=== PATIENT | female | born 1965 | race Caucasian/White ===

== ENCOUNTER 2016-12-27 12:53 | Inpatient (IN) | payer MEDICAID ==
[~2016-12-27] VITALS: Ht 160 cm; Wt 60.4 kg
[2016-12-27] MEDS ORDERED: ATOR40TA28 PO (13:58)
[2016-12-27] MEDS ORDERED: SODIUM CHLORIDE 0.9% 1,000 ML IV ONE (14:30)
[2016-12-27] MEDS ORDERED: ONDANSETRON HCL 4 MG/2 ML VIAL IVP ONE ×2 (14:30→17:15)
[2016-12-27 14:37] LABS: HEMATOCRIT 28.2 % (36-46); HEMOGLOBIN 9.3 g/dL (12.0-16.0); MEAN CORPUSCULAR HEMOGLOBIN 29.3 pg (26.0-34.0); MEAN CORPUSCULAR HGB CONC 33.1 G/dL (31.0-37.0); MEAN CORPUSCULAR VOLUME 89 fL (80-100); PLATELET COUNT (AUTO) 78 K/uL (150-450); RED BLOOD CELL COUNT(AUTO) 3.18 MIL/uL (4.00-5.20); RED CELL DISTRIBUTION WIDTH 13.8 % (11.5-14.5)
[2016-12-27] MEDS ORDERED: BARIUM SULFATE 0.1% SUSPENSION 450 ML BOTTLE PO ONE (15:15)
[2016-12-27 15:18] LABS: CALCIUM, TOTAL 7.5 mg/dL (8.8-10.5); CREATININE 5.05 mg/dL (0.60-1.30); POTASSIUM 5.4 mmol/L (3.5-5.1)
[2016-12-27 15:21] LABS: BAND NEUTROPHILS % (MANUAL) 20 % (1-5); LYMPHOCYTES % (MANUAL) 3 % (22-44); TOTAL CELLS COUNTED 100
[2016-12-27 15:23] LABS: RBC MORPHOLOGY COMMENT NORMAL RBC MORPH
[2016-12-27 15:24] LABS: ALBUMIN 2.1 g/dL (3.4-5.0); BILIRUBIN,TOTAL 0.8 mg/dL (0.1-1.0); TOTAL PROTEIN, SERUM 6.3 g/dL (6.4-8.2)
[2016-12-27] MEDS ORDERED: SODIUM CHLORIDE 0.9% 100 ML ONE (15:47)
[2016-12-27] MEDS ORDERED: IOVERSOL 350 MG/ML 100 ML VIAL ONE (15:47)
[2016-12-27 16:20] LABS: INFLUENZA TYPE B NEGATIVE FOR TYPE B (NEGATIVE)
[2016-12-27] MEDS ORDERED: MORPHINE SULFATE 2 MG/ML SYRINGE IVP ONE (16:30)
[2016-12-27] MEDS ORDERED: BISMUTH SUBSALICYLATE 524 MG/30 ML SUSPENSION UDCUP PO ONE (16:30)
[2016-12-27 19:52] LABS: ADD UA MICROSCOPIC YES; APPEARANCE,URINE CLOUDY (CLEAR); GLUCOSE, URINE (UA) NEGATIVE (NEGATIVE); KETONES,URINE NEGATIVE (NEGATIVE); LEUKOCYTE ESTERASE ,URINE NEGATIVE (NEGATIVE); OCCULT BLOOD,URINE NEGATIVE (NEGATIVE); PROTEIN,URINE SEE CONFIRM (NEGATIVE)
[2016-12-27 19:55] LABS: GLUCOSE,POINT OF CARE 217 MG/DL (70-110)
[2016-12-27] MEDS ORDERED: MORPHINE SULFATE 4 MG/ML SYRINGE IVP ONE (20:00)
[2016-12-27] MEDS ORDERED: CefTRIAXone 1 GM/DEXTROSE 50 ML IV ONE (20:00)
[2016-12-27 20:02] LABS: SULFOSALICYLIC ACID,URINE 2+ (Negative)
[2016-12-27 20:03] LABS: SQUAMOUS EPITHELIAL CELL,UR Few /LPF (None Seen)
[2016-12-27 20:05] LABS: RBC,URINE 0-2 /HPF (0-2)
[2016-12-27] MEDS ORDERED: ONDANSETRON HCL 4 MG/2 ML VIAL IVP PRN (20:30)
[2016-12-27] MEDS ORDERED: ZOLPIDEM TARTRATE 10 MG TABLET PO PRN (20:30)
[2016-12-27] MEDS ORDERED: ASPIRIN 81 MG CHEWABLE TABLET PO ONE (20:45)
[2016-12-27] MEDS ORDERED: SODIUM CHLORIDE 0.9% 500 ML IV ONE (21:00)
[2016-12-27 21:47] VITALS: BP 105/54
[2016-12-27] MEDS ORDERED: PNEUMOCOCCAL VACCINE POLYVALENT 0.5 ML VIAL [PPSV23] IM ONE (23:00)
[2016-12-27] MEDS ORDERED: INFLUENZA VIRUS VACCINE QVS 2016-17 (3YR+)/PF 60 MCG/0.5 ML SYRINGE IM ONE (23:00)
[2016-12-27] MEDS: HEPARIN SODIUM,PORCINE 5,000 UNITS/ML VIAL SQ SCH (23:29)
[2016-12-28] VITALS (7 sets, daily range): BP systolic 90–106; BP diastolic 57–71
[2016-12-28] MEDS: HEPARIN SODIUM,PORCINE 5,000 UNITS/ML VIAL SQ SCH ×2 (08:00→20:37)
[2016-12-28 08:19] LABS: ALBUMIN 1.6 g/dL (3.4-5.0); BILIRUBIN,TOTAL 0.7 mg/dL (0.1-1.0); CALCIUM, TOTAL 6.9 mg/dL (8.8-10.5); CREATININE 5.11 mg/dL (0.60-1.30); POTASSIUM 4.6 mmol/L (3.5-5.1); TOTAL PROTEIN, SERUM 5.6 g/dL (6.4-8.2)
[2016-12-28 08:20] LABS: HEMATOCRIT 24.8 % (36-46); HEMOGLOBIN 8.4 g/dL (12.0-16.0); MEAN CORPUSCULAR HEMOGLOBIN 29.4 pg (26.0-34.0); MEAN CORPUSCULAR VOLUME 86 fL (80-100); RED BLOOD CELL COUNT(AUTO) 2.87 MIL/uL (4.00-5.20); RED CELL DISTRIBUTION WIDTH 14.2 % (11.5-14.5)
[2016-12-28] MEDS: ACETAMINOPHEN 325 MG TABLET PO PRN (09:27)
[2016-12-28] MEDS: PANTOPRAZOLE SODIUM 40 MG DR TABLET PO SCH (09:30)
[2016-12-28 09:52] LABS: PLATELET COUNT (AUTO) 61 K/uL (150-450)
[2016-12-28 09:57] LABS: BAND NEUTROPHILS % (MANUAL) 20 % (1-5); EOSINOPHILS % (MANUAL) 5 % (1-6); LYMPHOCYTES % (MANUAL) 4 % (22-44); TOTAL CELLS COUNTED 100
[2016-12-28] MEDS: SODIUM CHLORIDE 0.9% 1,000 ML IV SCH (10:12)
[2016-12-28] MEDS ORDERED: DEXTROSE 50%-WATER 25 GM/50 ML SYRINGE IVP PRN ×2 (12:15→12:30)
[2016-12-28] MEDS ORDERED: INSULIN ASPART 100 UNITS/ML SQ PRN (12:15)
[2016-12-28] MEDS: INSULIN ASPART 100 UNITS/ML SQ PRN ×3 (13:28→20:45)
[2016-12-28] MEDS: VITAMIN B COMP/VIT C/FOLIC ACID CAPSULE PO SCH (15:41)
[2016-12-28 18:17] LABS: GLUCOSE COMMENT 1 Received Meds; GLUCOSE,POINT OF CARE 328 MG/DL (70-110)
[2016-12-28 18:17] LABS: GLUCOSE,POINT OF CARE 180 MG/DL (70-110)
[2016-12-28 18:48] LABS: APPEARANCE,URINE TURBID (CLEAR); GLUCOSE, URINE (UA) NEGATIVE (NEGATIVE); KETONES,URINE NEGATIVE (NEGATIVE); LEUKOCYTE ESTERASE ,URINE SMALL (NEGATIVE); OCCULT BLOOD,URINE SMALL (NEGATIVE); PROTEIN,URINE SEE CONFIRM (NEGATIVE)
[2016-12-28 19:07] LABS: SQUAMOUS EPITHELIAL CELL,UR Few /LPF (None Seen)
[2016-12-28 19:09] LABS: SULFOSALICYLIC ACID,URINE 2+ (Negative)
[2016-12-28] MEDS: CefTRIAXone 1 GM/DEXTROSE 50 ML IV SCH (19:15)
[2016-12-29] VITALS (7 sets, daily range): BP systolic 108–154; BP diastolic 70–114
[2016-12-29] MEDS: SODIUM CHLORIDE 0.9% 1,000 ML IV SCH ×2 (00:28→08:39)
[2016-12-29] MEDS: MetroNIDAZOLE 500 MG/NACL 100 ML IV SCH ×3 (01:48→16:04)
[2016-12-29] MEDS ORDERED: MEBROFENIN TC99M/MCL ISOTOPE 1 EA INJ INJ ONE (04:30)
[2016-12-29] MEDS: INSULIN ASPART 100 UNITS/ML SQ PRN ×3 (06:44→21:00)
[2016-12-29 08:13] LABS: INR 0.9 (0.9-1.1); PARTIAL THROMBOPLASTIN TIME 30 SEC (25-35)
[2016-12-29 08:30] LABS: HEMATOCRIT 23.7 % (36-46); HEMOGLOBIN 8.1 g/dL (12.0-16.0); MEAN CORPUSCULAR HEMOGLOBIN 29.2 pg (26.0-34.0); MEAN CORPUSCULAR HGB CONC 34.1 G/dL (31.0-37.0); MEAN CORPUSCULAR VOLUME 86 fL (80-100); PLATELET COUNT (AUTO) 37 K/uL (150-450); RED BLOOD CELL COUNT(AUTO) 2.77 MIL/uL (4.00-5.20); RED CELL DISTRIBUTION WIDTH 14.4 % (11.5-14.5); WHITE BLOOD COUNT (AUTO) 20.7 K/uL (4.5-11.0)
[2016-12-29] MEDS: VITAMIN B COMP/VIT C/FOLIC ACID CAPSULE PO SCH (08:38)
[2016-12-29] MEDS: HEPARIN SODIUM,PORCINE 5,000 UNITS/ML VIAL SQ SCH (08:38)
[2016-12-29] MEDS: PANTOPRAZOLE SODIUM 40 MG DR TABLET PO SCH (08:39)
[2016-12-29 08:44] LABS: ALBUMIN 1.4 g/dL (3.4-5.0); BILIRUBIN,TOTAL 0.6 mg/dL (0.1-1.0); CALCIUM, TOTAL 7.5 mg/dL (8.8-10.5); CREATININE 5.07 mg/dL (0.60-1.30); POTASSIUM 4.3 mmol/L (3.5-5.1); TOTAL PROTEIN, SERUM 5.3 g/dL (6.4-8.2)
[2016-12-29 09:00] LABS: MAGNESIUM 2.3 mg/dL (1.80-2.40); PHOSPHORUS 5.1 mg/dL (2.5-4.9)
[2016-12-29] MEDS ORDERED: SODIUM CHLORIDE 1 GM TABLET PO SCH (10:00)
[2016-12-29 10:15] LABS: BAND NEUTROPHILS % (MANUAL) 18 % (1-5); EOSINOPHILS % (MANUAL) 3 % (1-6); LYMPHOCYTES % (MANUAL) 2 % (22-44); RBC MORPHOLOGY COMMENT NORMAL RBC MORPH; TOTAL CELLS COUNTED 100
[2016-12-29] MEDS: ONDANSETRON HCL 4 MG/2 ML VIAL IVP PRN ×2 (10:26→20:45)
[2016-12-29] MEDS ORDERED: INSULIN ASPART 100 UNITS/ML SQ ONE (15:45)
[2016-12-29] MEDS: SODIUM CHLORIDE 3% 500 ML IV SCH (16:48)
[2016-12-29] MEDS ORDERED: *CLINICAL-LEVOFLOXACIN IVPB DOSING CLINICAL ONE ×2 (18:15)
[2016-12-29] MEDS ORDERED: LEVOFLOXACIN 750 MG/D5% WATER 150 ML IV ONE (19:00)
[2016-12-29] MEDS: CefTRIAXone 1 GM/DEXTROSE 50 ML IV SCH (20:31)
[2016-12-30] MEDS: MetroNIDAZOLE 500 MG/NACL 100 ML IV SCH ×3 (00:37→16:44)
[2016-12-30] MEDS: ONDANSETRON HCL 4 MG/2 ML VIAL IVP PRN ×4 (03:34→19:52)
[2016-12-30 04:06] VITALS: BP 141/79
[2016-12-30] MEDS: INSULIN ASPART 100 UNITS/ML SQ PRN ×4 (06:38→22:10)
[2016-12-30] MEDS: SODIUM CHLORIDE 3% 500 ML IV SCH (06:39)
[2016-12-30 06:42] LABS: GLUCOSE COMMENT 1 Received Meds; GLUCOSE,POINT OF CARE 253 MG/DL (70-110)
[2016-12-30 06:42] LABS: GLUCOSE COMMENT 1 Received Meds; GLUCOSE,POINT OF CARE 385 MG/DL (70-110)
[2016-12-30 06:42] LABS: GLUCOSE COMMENT 1 Received Meds; GLUCOSE,POINT OF CARE 362 MG/DL (70-110)
[2016-12-30 06:42] LABS: GLUCOSE,POINT OF CARE 343 MG/DL (70-110)
[2016-12-30 06:42] LABS: GLUCOSE,POINT OF CARE 200 MG/DL (70-110)
[2016-12-30 06:43] LABS: GLUCOSE,POINT OF CARE 322 MG/DL (70-110)
[2016-12-30 06:43] LABS: GLUCOSE COMMENT 1 Received Meds; GLUCOSE,POINT OF CARE 314 MG/DL (70-110)
[2016-12-30 06:47] LABS: BASOPHILS % (AUTO) 0.1 % (0.0-2.0); EOSINOPHILS % (AUTO) 3.3 % (1.0-6.0); HEMATOCRIT 26.2 % (36-46); HEMOGLOBIN 8.6 g/dL (12.0-16.0); LYMPHOCYTES # (AUTO) 1.1 K/uL (1.0-4.8); MEAN CORPUSCULAR HEMOGLOBIN 28.8 pg (26.0-34.0); MEAN CORPUSCULAR HGB CONC 32.6 G/dL (31.0-37.0); MEAN CORPUSCULAR VOLUME 88 fL (80-100); MONOCYTES # (AUTO) 0.3 K/uL (0.1-1.0); MONOCYTES % (AUTO) 1.6 % (2.0-9.0); NEUTROPHILS # (AUTO) 18.9 K/uL (1.8-7.7); PLATELET COUNT (AUTO) 23 K/uL (150-450); RED BLOOD CELL COUNT(AUTO) 2.97 MIL/uL (4.00-5.20); RED CELL DISTRIBUTION WIDTH 13.5 % (11.5-14.5); WHITE BLOOD COUNT (AUTO) 21.1 K/uL (4.5-11.0)
[2016-12-30 07:26] LABS: ALBUMIN 1.4 g/dL (3.4-5.0); BILIRUBIN,TOTAL 0.4 mg/dL (0.1-1.0); CREATININE 4.59 mg/dL (0.60-1.30); TOTAL PROTEIN, SERUM 5.5 g/dL (6.4-8.2)
[2016-12-30 08:01] VITALS: BP 131/78
[2016-12-30] MEDS: VITAMIN B COMP/VIT C/FOLIC ACID CAPSULE PO SCH (08:30)
[2016-12-30] MEDS: PANTOPRAZOLE SODIUM 40 MG DR TABLET PO SCH (08:30)
[2016-12-30 08:37] LABS: GLUCOSE COMMENT 1 Doctor Notified; GLUCOSE,POINT OF CARE 292 MG/DL (70-110)
[2016-12-30 09:08] LABS: RBC MORPHOLOGY COMMENT NORMAL RBC MORPH
[2016-12-30 10:48] VITALS: BP 134/77
[2016-12-30 11:28] LABS: CALCIUM, TOTAL 7.9 mg/dL (8.8-10.5); CREATININE 4.45 mg/dL (0.60-1.30); POTASSIUM 4.1 mmol/L (3.5-5.1)
[2016-12-30] MEDS: ACETAMINOPHEN 325 MG TABLET PO PRN (13:20)
[2016-12-30] MEDS: SODIUM CHLORIDE 0.9% 1,000 ML IV SCH (13:22)
[2016-12-30 16:32] VITALS: BP 162/98
[2016-12-30] MEDS: OxyCODONE HCL/ACETAMINOPHEN 5-325 MG TABLET PO PRN (16:44)
[2016-12-30 17:52] LABS: GLUCOSE COMMENT 1 Received Meds; GLUCOSE,POINT OF CARE 350 MG/DL (70-110)
[2016-12-30 17:53] LABS: GLUCOSE COMMENT 1 Received Meds; GLUCOSE,POINT OF CARE 261 MG/DL (70-110)
[2016-12-30 17:53] LABS: GLUCOSE COMMENT 1 Received Meds; GLUCOSE,POINT OF CARE 270 MG/DL (70-110)
[2016-12-30 18:01] LABS: GLUCOSE COMMENT 1 Received Meds; GLUCOSE,POINT OF CARE 321 MG/DL (70-110)
[2016-12-30 19:47] VITALS: BP 139/81
[2016-12-30] MEDS: CefTRIAXone 1 GM/DEXTROSE 50 ML IV SCH (19:52)
[2016-12-30] MEDS: INSULIN DETEMIR 100 UNITS/ML SQ SCH (21:00)
[2016-12-30 23:19] VITALS: BP 147/87
[2016-12-31 00:41] LABS: GLUCOSE, URINE (UA) 250 mg/dL (NEGATIVE); KETONES,URINE NEGATIVE (NEGATIVE); LEUKOCYTE ESTERASE ,URINE NEGATIVE (NEGATIVE); OCCULT BLOOD,URINE TRACE (NEGATIVE); PROTEIN,URINE SEE CONFIRM (NEGATIVE)
[2016-12-31 00:47] LABS: APPEARANCE,URINE HAZY (CLEAR)
[2016-12-31] MEDS: MetroNIDAZOLE 500 MG/NACL 100 ML IV SCH ×2 (00:47→08:22)
[2016-12-31] MEDS: SODIUM CHLORIDE 0.9% 1,000 ML IV SCH ×2 (00:47→22:21)
[2016-12-31 01:01] LABS: RBC,URINE 0-2 /HPF (0-2); SULFOSALICYLIC ACID,URINE 1+ (Negative); WBC,URINE 0-2 /HPF (0-5)
[2016-12-31] MEDS: ONDANSETRON HCL 4 MG/2 ML VIAL IVP PRN ×3 (02:04→17:45)
[2016-12-31 04:48] VITALS: BP 150/84
[2016-12-31] MEDS: INSULIN ASPART 100 UNITS/ML SQ PRN ×4 (05:47→20:32)
[2016-12-31 06:41] LABS: HEMATOCRIT 26.3 % (36-46); HEMOGLOBIN 8.7 g/dL (12.0-16.0); MEAN CORPUSCULAR HEMOGLOBIN 28.9 pg (26.0-34.0); MEAN CORPUSCULAR VOLUME 88 fL (80-100); PLATELET COUNT (AUTO) 41 K/uL (150-450); RED CELL DISTRIBUTION WIDTH 14.7 % (11.5-14.5); WHITE BLOOD COUNT (AUTO) 19.2 K/uL (4.5-11.0)
[2016-12-31 07:00] LABS: ALBUMIN 1.5 g/dL (3.4-5.0); BILIRUBIN,TOTAL 0.3 mg/dL (0.1-1.0); CALCIUM, TOTAL 8.4 mg/dL (8.8-10.5); CREATININE 3.84 mg/dL (0.60-1.30); TOTAL PROTEIN, SERUM 5.3 g/dL (6.4-8.2)
[2016-12-31 07:46] VITALS: BP 159/85
[2016-12-31] MEDS: PANTOPRAZOLE SODIUM 40 MG DR TABLET PO SCH (08:22)
[2016-12-31] MEDS: VITAMIN B COMP/VIT C/FOLIC ACID CAPSULE PO SCH (08:22)
[2016-12-31] MEDS: INSULIN DETEMIR 100 UNITS/ML SQ SCH ×2 (08:23→20:32)
[2016-12-31 08:47] LABS: BAND NEUTROPHILS % (MANUAL) 25 % (1-5); LYMPHOCYTES % (MANUAL) 8 % (22-44); RBC MORPHOLOGY COMMENT NORMAL RBC MORPH; TOTAL CELLS COUNTED 100
[2016-12-31 11:14] VITALS: BP 154/88
[2016-12-31] MEDS: ACETAMINOPHEN 325 MG TABLET PO PRN ×2 (11:48→23:12)
[2016-12-31 15:01] VITALS: BP 158/90
[2016-12-31 17:32] LABS: GLUCOSE COMMENT 1 Received Meds; GLUCOSE,POINT OF CARE 247 MG/DL (70-110)
[2016-12-31 17:32] LABS: GLUCOSE COMMENT 1 Received Meds; GLUCOSE,POINT OF CARE 258 MG/DL (70-110)
[2016-12-31 17:37] LABS: GLUCOSE COMMENT 1 Received Meds; GLUCOSE,POINT OF CARE 245 MG/DL (70-110)
[2016-12-31 19:22] VITALS: BP 155/82
[2016-12-31] MEDS: CefTRIAXone 1 GM/DEXTROSE 50 ML IV SCH (20:25)
[2016-12-31] MEDS ORDERED: LEVOFLOXACIN 500 MG/D5% WATER 100 ML IV SCH (21:00)
[2017-01-01] VITALS (8 sets, daily range): BP systolic 143–165; BP diastolic 73–90
[2017-01-01] MEDS: ONDANSETRON HCL 4 MG/2 ML VIAL IVP PRN ×2 (03:28→09:58)
[2017-01-01] MEDS: INSULIN ASPART 100 UNITS/ML SQ PRN ×4 (05:57→20:50)
[2017-01-01 07:02] LABS: EOSINOPHILS # (AUTO) 0.25 K/uL (0.00-0.70); EOSINOPHILS % (AUTO) 1.53 % (1.0-6.0); HEMATOCRIT 25.5 % (36-46); HEMOGLOBIN 8.5 g/dL (12.0-16.0); LYMPHOCYTES # (AUTO) 1.2 K/uL (1.0-4.8); LYMPHOCYTES % (AUTO) 7.3 % (22.0-44.0); MEAN CORPUSCULAR HGB CONC 33.5 G/dL (31.0-37.0); MEAN CORPUSCULAR VOLUME 86 fL (80-100); MONOCYTES # (AUTO) 0.2 K/uL (0.1-1.0); MONOCYTES % (AUTO) 1.4 % (2.0-9.0); NEUTROPHILS # (AUTO) 14.9 K/uL (1.8-7.7); PLATELET COUNT (AUTO) 70 K/uL (150-450); RED BLOOD CELL COUNT(AUTO) 2.95 MIL/uL (4.00-5.20); RED CELL DISTRIBUTION WIDTH 14.7 % (11.5-14.5); WHITE BLOOD COUNT (AUTO) 16.5 K/uL (4.5-11.0)
[2017-01-01 07:16] LABS: NEUTROPHILS % (AUTO) 89.8 % (40.0-70.0)
[2017-01-01 07:50] LABS: ALBUMIN 1.4 g/dL (3.4-5.0); BILIRUBIN,TOTAL 0.4 mg/dL (0.1-1.0); CREATININE 2.81 mg/dL (0.60-1.30); POTASSIUM 3.9 mmol/L (3.5-5.1); TOTAL PROTEIN, SERUM 5.1 g/dL (6.4-8.2)
[2017-01-01 08:05] LABS: CALCIUM, TOTAL 7.8 mg/dL (8.8-10.5)
[2017-01-01 08:31] LABS: GLUCOSE COMMENT 1 Received Meds; GLUCOSE,POINT OF CARE 210 MG/DL (70-110)
[2017-01-01 08:31] LABS: GLUCOSE COMMENT 1 Received Meds; GLUCOSE,POINT OF CARE 270 MG/DL (70-110)
[2017-01-01] MEDS ORDERED: EPOETIN ALFA 10,000 UNITS/ML VIAL SQ SCH (09:00)
[2017-01-01] MEDS: PANTOPRAZOLE SODIUM 40 MG DR TABLET PO SCH (09:14)
[2017-01-01] MEDS: VITAMIN B COMP/VIT C/FOLIC ACID CAPSULE PO SCH (09:14)
[2017-01-01] MEDS: INSULIN DETEMIR 100 UNITS/ML SQ SCH ×2 (09:16→20:51)
[2017-01-01] MEDS ORDERED: AmLODIPine BESYLATE 5 MG TABLET PO SCH (10:30)
[2017-01-01 10:51] LABS: BAND NEUTROPHILS % (MANUAL) 13 % (1-5); LYMPHOCYTES % (MANUAL) 18 % (22-44); TOTAL CELLS COUNTED 100
[2017-01-01 10:52] LABS: RBC MORPHOLOGY COMMENT NORMAL RBC MORPH
[2017-01-01] MEDS: SODIUM CHLORIDE 0.9% 1,000 ML IV SCH (15:26)
[2017-01-01] MEDS: FERROUS SULFATE 325 MG EC TABLET PO SCH (17:50)
[2017-01-01 19:20] LABS: GLUCOSE COMMENT 1 Received Meds; GLUCOSE,POINT OF CARE 262 MG/DL (70-110)
[2017-01-01] MEDS: CefTRIAXone 1 GM/DEXTROSE 50 ML IV SCH (20:51)
[2017-01-01] MEDS: OxyCODONE HCL/ACETAMINOPHEN 5-325 MG TABLET PO PRN (20:55)
[2017-01-01] MEDS: OXYGEN THERAPY IH SCH (20:56)
[2017-01-02 04:31] LABS: GLUCOSE COMMENT 1 Received Meds; GLUCOSE,POINT OF CARE 280 MG/DL (70-110)
[2017-01-02] MEDS: SODIUM CHLORIDE 0.9% 1,000 ML IV SCH (04:37)
[2017-01-02] MEDS: ONDANSETRON HCL 4 MG/2 ML VIAL IVP PRN (04:42)
[2017-01-02 05:10] VITALS: BP 151/75
[2017-01-02 06:28] LABS: CALCIUM, TOTAL 7.8 mg/dL (8.8-10.5); CREATININE 1.86 mg/dL (0.60-1.30); MAGNESIUM 1.7 mg/dL (1.80-2.40); PHOSPHORUS 3.2 mg/dL (2.5-4.9); POTASSIUM 3.5 mmol/L (3.5-5.1)
[2017-01-02] MEDS: INSULIN ASPART 100 UNITS/ML SQ PRN ×4 (06:42→20:20)
[2017-01-02 06:51] LABS: GLUCOSE COMMENT 1 Received Meds; GLUCOSE,POINT OF CARE 172 MG/DL (70-110)
[2017-01-02 07:46] VITALS: BP 155/86
[2017-01-02] MEDS: OXYGEN THERAPY IH SCH (08:00)
[2017-01-02 08:26] LABS: BASOPHILS % (AUTO) 0.1 % (0.0-2.0); HEMATOCRIT 27.3 % (36-46); LYMPHOCYTES # (AUTO) 1.8 K/uL (1.0-4.8); LYMPHOCYTES % (AUTO) 11.1 % (22.0-44.0); MEAN CORPUSCULAR VOLUME 88 fL (80-100); MONOCYTES # (AUTO) 0.5 K/uL (0.1-1.0); MONOCYTES % (AUTO) 3.1 % (2.0-9.0); NEUTROPHILS # (AUTO) 13.6 K/uL (1.8-7.7); NEUTROPHILS % (AUTO) 82.7 % (40.0-70.0); PLATELET COUNT (AUTO) 142 K/uL (150-450); RED CELL DISTRIBUTION WIDTH 14.5 % (11.5-14.5); WHITE BLOOD COUNT (AUTO) 16.5 K/uL (4.5-11.0)
[2017-01-02] MEDS: PANTOPRAZOLE SODIUM 40 MG DR TABLET PO SCH (08:56)
[2017-01-02] MEDS: VITAMIN B COMP/VIT C/FOLIC ACID CAPSULE PO SCH (08:56)
[2017-01-02] MEDS: FERROUS SULFATE 325 MG EC TABLET PO SCH ×2 (08:57→18:28)
[2017-01-02] MEDS: INSULIN DETEMIR 100 UNITS/ML SQ SCH ×2 (08:58→20:21)
[2017-01-02] MEDS ORDERED: AmLODIPine BESYLATE 10 MG TABLET PO SCH (09:00)
[2017-01-02] MEDS ORDERED: MAGNESIUM SULFATE 1 GM in DEXTROSE 5%-WATER 50 ML IV ONE (10:00)
[2017-01-02 11:13] VITALS: BP 143/82
[2017-01-02 12:11] LABS: GLUCOSE COMMENT 1 Received Meds; GLUCOSE,POINT OF CARE 226 MG/DL (70-110)
[2017-01-02 15:20] VITALS: BP 147/77
[2017-01-02 17:56] LABS: GLUCOSE COMMENT 1 Received Meds; GLUCOSE,POINT OF CARE 245 MG/DL (70-110)
[2017-01-02] MEDS ORDERED: PANT40TA25 PO (18:40)
[2017-01-02] MEDS ORDERED: AMLO-512 PO (18:40)
[2017-01-02] MEDS ORDERED: FERR-72 PO (18:40)
[2017-01-02] MEDS ORDERED: FOLI1CAP2 PO (18:40)
[2017-01-02] MEDS ORDERED: INSU100V12 SQ (18:40)
[2017-01-02] MEDS ORDERED: CEFX1I IV (18:40)
[2017-01-02] MEDS ORDERED: PERCT PO (18:41)
[2017-01-02] MEDS: CefTRIAXone 1 GM/DEXTROSE 50 ML IV SCH (18:59)
[2017-01-02] MEDS ORDERED: ACET-784 PO (19:18)
[2017-01-02] MEDS ORDERED: INSNOV SQ (19:19)
[2017-01-02 20:26] VITALS: BP 149/92
[2017-01-03 06:56] LABS: GLUCOSE COMMENT 1 Received Meds; GLUCOSE,POINT OF CARE 287 MG/DL (70-110)
[2017-01-03 10:01] LABS: GLUCOSE COMMENT 1 Received Meds; GLUCOSE,POINT OF CARE 343 MG/DL (70-110)
[2017-01-04 20:42] LABS: GLUCOSE,POINT OF CARE 259 MG/DL (70-110)
[2017-01-04 20:42] LABS: GLUCOSE COMMENT 1 Received Meds; GLUCOSE,POINT OF CARE 323 MG/DL (70-110)
== END 2017-01-02 20:15 | disposition home or self-care (01) | DRG 720 ==
LOC: EMS 12:57 → 5N 20:32 → 6N 01-01 16:00
PROVIDERS: ADMIT Hospitalist; ATTEND Hospitalist
PROC: 3E0234Z Introduction of Serum, Toxoid and Vaccine into Muscle, Percutaneous Approach (ICD-10-PCS; principal; 2016-12-27)
DX: A41.9 Sepsis, unspecified organism (principal); N17.0 Acute kidney failure with tubular necrosis; E43 Unspecified severe protein-calorie malnutrition; D69.6 Thrombocytopenia, unspecified; E11.22 Type 2 diabetes mellitus with diabetic chronic kidney disease; E11.65 Type 2 diabetes mellitus with hyperglycemia; K76.0 Fatty (change of) liver, not elsewhere classified; E87.1 Hypo-osmolality and hyponatremia; N12 Tubulo-interstitial nephritis, not specified as acute or chronic; R19.7 Diarrhea, unspecified; I12.9 Hypertensive chronic kidney disease with stage 1 through stage 4 chronic kidney disease, or unspecified chronic kidney disease; E83.42 Hypomagnesemia; R04.0 Epistaxis; D64.9 Anemia, unspecified; K52.9 Noninfective gastroenteritis and colitis, unspecified; E78.5 Hyperlipidemia, unspecified; E78.00 Pure hypercholesterolemia, unspecified; N13.30 Unspecified hydronephrosis; E87.5 Hyperkalemia; B96.20 Unspecified Escherichia coli [E. coli] as the cause of diseases classified elsewhere; N18.9 Chronic kidney disease, unspecified; Z79.899 Other long term (current) drug therapy; Z90.49 Acquired absence of other specified parts of digestive tract; Z79.01 Long term (current) use of anticoagulants; Z68.23 Body mass index [BMI] 23.0-23.9, adult; Z23 Encounter for immunization
CPT/HCPCS: 51702; 74177; 76700; 76770; 78226; 82570; 82962; 83615; 83735; 83930; 83935; 84100; 84295; 84300; 84540; 85007; 85362; 87040; 87086; 87804; 90471; 93005; 93306; 97110; 97116; 97162; 97530; 99281; A9537; J0696; J0885; J1644; J1815; J1956; J2270; J2405; J3475; J3490; J7030; J7040; J7050; J7060

== ENCOUNTER 2017-07-02 20:12 | Emergency (ER) | payer MEDICAID ==
[~2017-07-02] VITALS: Ht 152.4 cm; Wt 61.4 kg
[~2017-07-02 20:12] MED LIST: ASPI-556 PO; ATOR40TA28 PO; CIP250 PO; FERR-72 PO; FOLI1CAP2 PO; GABA-529 PO; INSU100V12 SQ; METO25 PO; METR500 PO; NIFE10CA PO; PANT40TA25 PO; VALS160T2 PO
[2017-07-02 20:16] VITALS: BP 126/63
[2017-07-02 20:26] LABS: BASOPHILS % (AUTO) 0.7 % (0.0-2.0); EOSINOPHILS % (AUTO) 4.5 % (1.0-6.0); HEMATOCRIT 31.1 % (36-46); HEMOGLOBIN 10.8 g/dL (12.0-16.0); MEAN CORPUSCULAR HEMOGLOBIN 29.4 pg (26.0-34.0); MEAN CORPUSCULAR HGB CONC 34.7 G/dL (31.0-37.0); MEAN CORPUSCULAR VOLUME 85 fL (80-100); MONOCYTES # (AUTO) 0.5 K/uL (0.1-1.0); MONOCYTES % (AUTO) 6.3 % (2.0-9.0); NEUTROPHILS # (AUTO) 4.4 K/uL (1.8-7.7); NEUTROPHILS % (AUTO) 60.5 % (40.0-70.0); PLATELET COUNT (AUTO) 326 K/uL (150-450); RED BLOOD CELL COUNT(AUTO) 3.67 MIL/uL (4.00-5.20); RED CELL DISTRIBUTION WIDTH 14.2 % (11.5-14.5); WHITE BLOOD COUNT (AUTO) 7.3 K/uL (4.5-11.0)
[2017-07-02 20:48] LABS: ALBUMIN 3.5 g/dL (3.4-5.0); BILIRUBIN,TOTAL 0.6 mg/dL (0.1-1.0); CALCIUM, TOTAL 9.6 mg/dL (8.8-10.5); CREATININE 2.71 mg/dL (0.60-1.30); POTASSIUM 5.2 mmol/L (3.5-5.1); TOTAL PROTEIN, SERUM 8.2 g/dL (6.4-8.2)
== END 2017-07-02 21:34 | disposition left against medical advice (07) ==
LOC: EMS 20:13
DX: R10.31 Right lower quadrant pain (principal); R11.2 Nausea with vomiting, unspecified; E11.9 Type 2 diabetes mellitus without complications; E78.00 Pure hypercholesterolemia, unspecified; I10 Essential (primary) hypertension; Z53.21 Procedure and treatment not carried out due to patient leaving prior to being seen by health care provider

== ENCOUNTER 2017-09-19 09:15 | Inpatient (IN) | payer MEDICAID ==
[~2017-09-19] VITALS: Ht 152.4 cm; Wt 79.3 kg
[2017-09-19] VITALS (16 sets, daily range): BP systolic 121–199; BP diastolic 67–103
[~2017-09-19 09:15] MED LIST changes: +ACET1TAB12 PO; +CEPH500T PO; -CIP250 PO; +CIPR-140 PO; +DOCU250C90 PO; -FERR-72 PO; +FERR-82 PO; +FERR325T22 PO; +GABA100C PO; +INSLAN SQ; +INSNOV SQ; -METR500 PO; +METR500T4 PO; +NIFE30TA5 PO
[2017-09-19] MEDS ORDERED: GABA-529 PO (09:24)
[2017-09-19] MEDS ORDERED: INSLAN SQ (09:24)
[2017-09-19] MEDS ORDERED: LISI-662 PO (09:24)
[2017-09-19] MEDS ORDERED: PROM25 PO ×2 (09:24→15:35)
[2017-09-19 09:28] LABS: GLUCOSE,POINT OF CARE 178 MG/DL (70-110)
[2017-09-19] MEDS ORDERED: MORPHINE SULFATE 4 MG/ML SYRINGE IVP ONE ×2 (09:45→12:30)
[2017-09-19] MEDS ORDERED: ONDANSETRON HCL 4 MG/2 ML VIAL IVP ONE (09:45)
[2017-09-19] MEDS ORDERED: PANTOPRAZOLE SODIUM 40 MG/VIAL IVP ONE ×2 (09:45→11:15)
[2017-09-19] MEDS ORDERED: SODIUM CHLORIDE 0.9% 1,000 ML IV ONE ×3 (09:45→14:15)
[2017-09-19 10:54] LABS: BASOPHILS # (AUTO) 0.03 K/uL (0.00-0.20)
[2017-09-19 10:58] LABS: APPEARANCE,URINE CLEAR (CLEAR); GLUCOSE, URINE (UA) 100 mg/dL (NEGATIVE); KETONES,URINE NEGATIVE (NEGATIVE); LEUKOCYTE ESTERASE ,URINE NEGATIVE (NEGATIVE); OCCULT BLOOD,URINE MODERATE (NEGATIVE); PROTEIN,URINE SEE CONFIRM (NEGATIVE)
[2017-09-19 10:59] LABS: BASOPHILS % (AUTO) 0.3 % (0.0-2.0); EOSINOPHILS # (AUTO) 0.22 K/uL (0.00-0.70); EOSINOPHILS % (AUTO) 2.43 % (1.0-6.0); LYMPHOCYTES # (AUTO) 0.9 K/uL (1.0-4.8); LYMPHOCYTES % (AUTO) 10.4 % (22.0-44.0); MEAN CORPUSCULAR HEMOGLOBIN 30.5 pg (26.0-34.0); MEAN CORPUSCULAR HGB CONC 35.1 G/dL (31.0-37.0); MEAN CORPUSCULAR VOLUME 87 fL (80-100); MONOCYTES # (AUTO) 0.6 K/uL (0.1-1.0); MONOCYTES % (AUTO) 6.7 % (2.0-9.0); NEUTROPHILS # (AUTO) 7.2 K/uL (1.8-7.7); NEUTROPHILS % (AUTO) 80.2 % (40.0-70.0); PLATELET COUNT (AUTO) 262 K/uL (150-450); RED BLOOD CELL COUNT(AUTO) 2.23 MIL/uL (4.00-5.20); RED CELL DISTRIBUTION WIDTH 13.7 % (11.5-14.5)
[2017-09-19 11:02] LABS: HEMOGLOBIN 6.8 g/dL (12.0-16.0)
[2017-09-19 11:03] LABS: ADD UA MICROSCOPIC YES
[2017-09-19 11:03] LABS: ALBUMIN 2.9 g/dL (3.4-5.0); BILIRUBIN,TOTAL 0.5 mg/dL (0.1-1.0); CALCIUM, TOTAL 8.1 mg/dL (8.8-10.5); CREATININE 3.68 mg/dL (0.60-1.30); HEMATOCRIT 19.4 % (36-46); POTASSIUM 4.1 mmol/L (3.5-5.1); TOTAL PROTEIN, SERUM 7.1 g/dL (6.4-8.2)
[2017-09-19 11:11] LABS: SULFOSALICYLIC ACID,URINE 3+ (Negative)
[2017-09-19 11:13] LABS: RBC,URINE 0-2 /HPF (0-2); SQUAMOUS EPITHELIAL CELL,UR Few /LPF (None Seen); WBC,URINE None Seen /HPF (0-5)
[2017-09-19] MEDS ORDERED: ACETAMINOPHEN 325 MG TABLET PO PRN ×2 (11:30→14:15)
[2017-09-19] MEDS ORDERED: ONDANSETRON HCL 4 MG/2 ML VIAL IVP PRN (11:30)
[2017-09-19 12:08] LABS: GLUCOSE,POINT OF CARE 168 MG/DL (70-110)
[2017-09-19] MEDS ORDERED: METOCLOPRAMIDE HCL 5 MG/ML 2 ML VIAL IVP ONE (12:30)
[2017-09-19] MEDS ORDERED: MAGNESIUM HYDROXIDE SUSPENSION 30 ML UDCUP PO PRN (14:15)
[2017-09-19] MEDS ORDERED: BISACODYL 10 MG RECTAL RECTAL SUPPOSITORY PR PRN (14:15)
[2017-09-19] MEDS ORDERED: HydrALAZINE HCL 20 MG/ML VIAL IVP PRN ×2 (14:15→18:00)
[2017-09-19] MEDS ORDERED: HYDROCODONE/ACETAMINOPHEN 5-325 MG TABLET PO PRN (14:15)
[2017-09-19] MEDS ORDERED: ZOLPIDEM TARTRATE 5 MG TABLET PO PRN (14:15)
[2017-09-19] MEDS ORDERED: DEXTROSE 50%-WATER 25 GM/50 ML SYRINGE IVP PRN (14:15)
[2017-09-19] MEDS: METOPROLOL TARTRATE 50 MG TABLET PO SCH ×2 (15:15→20:24)
[2017-09-19] MEDS ORDERED: ONDA4 PO ×2 (15:35)
[2017-09-19] MEDS: NIFEdipine 60 MG ER TABLET PO SCH (16:03)
[2017-09-19] MEDS: PANTOPRAZOLE SODIUM 80 MG in SODIUM CHLORIDE 0.9% 100 ML IV SCH (16:12)
[2017-09-19 17:26] LABS: CALCIUM, TOTAL 7.9 mg/dL (8.8-10.5); CREATININE 3.68 mg/dL (0.60-1.30); POTASSIUM 3.7 mmol/L (3.5-5.1)
[2017-09-19 17:27] LABS: ADD UA MICROSCOPIC YES; APPEARANCE,URINE CLEAR (CLEAR); GLUCOSE, URINE (UA) 100 mg/dL (NEGATIVE); KETONES,URINE NEGATIVE (NEGATIVE); LEUKOCYTE ESTERASE ,URINE NEGATIVE (NEGATIVE); OCCULT BLOOD,URINE SMALL (NEGATIVE); PROTEIN,URINE SEE CONFIRM (NEGATIVE)
[2017-09-19 17:39] LABS: SQUAMOUS EPITHELIAL CELL,UR Few /LPF (None Seen)
[2017-09-19 17:41] LABS: RBC,URINE 0-2 /HPF (0-2); WBC,URINE 0-2 /HPF (0-5)
[2017-09-19 17:46] LABS: SULFOSALICYLIC ACID,URINE 3+ (Negative)
[2017-09-19] MEDS ORDERED: DEXTROSE 5%-WATER 1,000 ML IV SCH (18:00)
[2017-09-19] MEDS ORDERED: INFLUENZA VIRUS VACCINE QVS 2017-18 (3YR+)/PF 60 MCG/0.5 ML SYRINGE IM ONE (19:00)
[2017-09-19] MEDS: MORPHINE SULFATE 2 MG/ML SYRINGE IVP PRN (20:21)
[2017-09-19] MEDS: DOCUSATE SODIUM 100 MG CAPSULE PO SCH (20:24)
[2017-09-19] MEDS ORDERED: SODIUM CHLORIDE 0.9% 250 ML IV ONE (20:59)
[2017-09-19] MEDS ORDERED: PANTOPRAZOLE SODIUM 40 MG/VIAL IVP SCH (21:00)
[2017-09-19] MEDS ORDERED: INSULIN DETEMIR 100 UNITS/ML SQ SCH (21:00)
[2017-09-20] VITALS (8 sets, daily range): BP systolic 124–151; BP diastolic 68–78
[2017-09-20] MEDS: PANTOPRAZOLE SODIUM 80 MG in SODIUM CHLORIDE 0.9% 100 ML IV SCH (01:56)
[2017-09-20 02:10] LABS: GLUCOSE,POINT OF CARE 125 MG/DL (70-110)
[2017-09-20] MEDS: MORPHINE SULFATE 2 MG/ML SYRINGE IVP PRN ×2 (05:25→20:45)
[2017-09-20 06:17] LABS: BASOPHILS % (AUTO) 0.3 % (0.0-2.0); EOSINOPHILS % (AUTO) 3.8 % (1.0-6.0); HEMATOCRIT 26.2 % (36-46); HEMOGLOBIN 9.2 g/dL (12.0-16.0); LYMPHOCYTES # (AUTO) 1.2 K/uL (1.0-4.8); LYMPHOCYTES % (AUTO) 16.3 % (22.0-44.0); MEAN CORPUSCULAR HEMOGLOBIN 30.3 pg (26.0-34.0); MEAN CORPUSCULAR VOLUME 87 fL (80-100); MONOCYTES # (AUTO) 0.6 K/uL (0.1-1.0); MONOCYTES % (AUTO) 8.2 % (2.0-9.0); NEUTROPHILS # (AUTO) 5.2 K/uL (1.8-7.7); NEUTROPHILS % (AUTO) 71.4 % (40.0-70.0); PLATELET COUNT (AUTO) 222 K/uL (150-450); RED BLOOD CELL COUNT(AUTO) 3.02 MIL/uL (4.00-5.20); RED CELL DISTRIBUTION WIDTH 13.7 % (11.5-14.5); WHITE BLOOD COUNT (AUTO) 7.3 K/uL (4.5-11.0)
[2017-09-20] MEDS ORDERED: PROPOFOL 1% 20 ML VIAL IVP ONE (06:38)
[2017-09-20] MEDS: DOCUSATE SODIUM 100 MG CAPSULE PO SCH ×2 (08:04→20:05)
[2017-09-20] MEDS: FERROUS SULFATE 325 MG EC TABLET PO SCH (08:04)
[2017-09-20] MEDS: ASPIRIN 81 MG EC TABLET PO SCH (08:04)
[2017-09-20] MEDS: ATORVASTATIN CALCIUM 40 MG TABLET PO SCH (08:04)
[2017-09-20] MEDS: METOPROLOL TARTRATE 50 MG TABLET PO SCH ×2 (08:05→20:05)
[2017-09-20] MEDS: NIFEdipine 60 MG ER TABLET PO SCH (08:05)
[2017-09-20] MEDS ORDERED: PANTOPRAZOLE SODIUM 40 MG/VIAL IVP SCH (09:00)
[2017-09-20] MEDS ORDERED: NIFEdipine 30 MG ER TABLET PO SCH (09:00)
[2017-09-20] MEDS ORDERED: LISINOPRIL 20 MG TABLET PO SCH (09:00)
[2017-09-20] MEDS ORDERED: PANTOPRAZOLE SODIUM 40 MG DR TABLET PO SCH (09:00)
[2017-09-20 09:08] LABS: CREATININE 3.99 mg/dL (0.60-1.30); POTASSIUM 3.7 mmol/L (3.5-5.1)
[2017-09-20] MEDS ORDERED: SODIUM CHLORIDE 0.9% 1,000 ML IV ONE ×2 (09:15→11:05)
[2017-09-20] MEDS: LACTULOSE 20 GM/30 ML SOLUTION UDCUP PO SCH ×2 (10:16→20:05)
[2017-09-20] MEDS: EPOETIN ALFA 10,000 UNITS/ML VIAL SQ SCH (10:16)
[2017-09-20] MEDS ORDERED: NIFE60TA71 PO (12:35)
[2017-09-20 16:05] LABS: CALCIUM, TOTAL 7.9 mg/dL (8.8-10.5); CREATININE 4.34 mg/dL (0.60-1.30); POTASSIUM 3.9 mmol/L (3.5-5.1)
[2017-09-20] MEDS: INSULIN ASPART 100 UNITS/ML SQ PRN (17:50)
[2017-09-20] MEDS: PANTOPRAZOLE SODIUM 40 MG/VIAL IVP SCH (20:06)
[2017-09-20] MEDS: ONDANSETRON HCL 4 MG/2 ML VIAL IVP PRN (21:18)
[2017-09-21] VITALS (7 sets, daily range): BP systolic 103–186; BP diastolic 62–87
[2017-09-21 00:24] LABS: GLUCOSE COMMENT 1 Received Meds; GLUCOSE,POINT OF CARE 299 MG/DL (70-110)
[2017-09-21 00:24] LABS: GLUCOSE,POINT OF CARE 123 MG/DL (70-110)
[2017-09-21 00:24] LABS: GLUCOSE,POINT OF CARE 124 MG/DL (70-110)
[2017-09-21] MEDS: ONDANSETRON HCL 4 MG/2 ML VIAL IVP PRN ×2 (05:56→11:49)
[2017-09-21] MEDS: MORPHINE SULFATE 2 MG/ML SYRINGE IVP PRN ×3 (05:57→22:24)
[2017-09-21 06:53] LABS: BASOPHILS % (AUTO) 0.7 % (0.0-2.0); EOSINOPHILS % (AUTO) 7.2 % (1.0-6.0); HEMATOCRIT 26.6 % (36-46); HEMOGLOBIN 9.2 g/dL (12.0-16.0); LYMPHOCYTES # (AUTO) 1.1 K/uL (1.0-4.8); MEAN CORPUSCULAR HEMOGLOBIN 30.2 pg (26.0-34.0); MEAN CORPUSCULAR HGB CONC 34.5 G/dL (31.0-37.0); MEAN CORPUSCULAR VOLUME 88 fL (80-100); MONOCYTES # (AUTO) 0.5 K/uL (0.1-1.0); MONOCYTES % (AUTO) 8.7 % (2.0-9.0); NEUTROPHILS % (AUTO) 65.4 % (40.0-70.0); PLATELET COUNT (AUTO) 214 K/uL (150-450); RED BLOOD CELL COUNT(AUTO) 3.04 MIL/uL (4.00-5.20); RED CELL DISTRIBUTION WIDTH 14.2 % (11.5-14.5); WHITE BLOOD COUNT (AUTO) 6.1 K/uL (4.5-11.0)
[2017-09-21 07:23] LABS: INR 0.9 (0.9-1.1); PROTHROMBIN TIME 9.9 SEC (9.4-11.6)
[2017-09-21 07:26] LABS: ALBUMIN 2.4 g/dL (3.4-5.0); BILIRUBIN,TOTAL 0.3 mg/dL (0.1-1.0); CALCIUM, TOTAL 8.1 mg/dL (8.8-10.5); CREATININE 4.01 mg/dL (0.60-1.30); MAGNESIUM 2.4 mg/dL (1.80-2.40); POTASSIUM 3.8 mmol/L (3.5-5.1); TOTAL PROTEIN, SERUM 6.2 g/dL (6.4-8.2)
[2017-09-21] MEDS: LACTULOSE 20 GM/30 ML SOLUTION UDCUP PO SCH (08:01)
[2017-09-21] MEDS: NIFEdipine 60 MG ER TABLET PO SCH (08:13)
[2017-09-21] MEDS: DOCUSATE SODIUM 100 MG CAPSULE PO SCH ×2 (08:13→20:24)
[2017-09-21] MEDS: ASPIRIN 81 MG EC TABLET PO SCH (08:13)
[2017-09-21] MEDS: METOPROLOL TARTRATE 50 MG TABLET PO SCH ×2 (08:13→20:20)
[2017-09-21] MEDS: FERROUS SULFATE 325 MG EC TABLET PO SCH (08:13)
[2017-09-21] MEDS: PANTOPRAZOLE SODIUM 40 MG/VIAL IVP SCH ×2 (08:13→20:20)
[2017-09-21] MEDS: ATORVASTATIN CALCIUM 40 MG TABLET PO SCH (08:14)
[2017-09-21] MEDS: INSULIN ASPART 100 UNITS/ML SQ PRN ×2 (12:15→20:24)
[2017-09-21 14:18] LABS: GLUCOSE,POINT OF CARE 136 MG/DL (70-110)
[2017-09-21 14:22] LABS: GLUCOSE COMMENT 1 Received Meds; GLUCOSE,POINT OF CARE 175 MG/DL (70-110)
[2017-09-21 20:54] LABS: GLUCOSE,POINT OF CARE 106 MG/DL (70-110)
[2017-09-22] VITALS (7 sets, daily range): BP systolic 132–180; BP diastolic 74–88
[2017-09-22] MEDS: ONDANSETRON HCL 4 MG/2 ML VIAL IVP PRN ×3 (04:17→17:23)
[2017-09-22] MEDS: MORPHINE SULFATE 2 MG/ML SYRINGE IVP PRN ×2 (05:39→17:23)
[2017-09-22] MEDS: INSULIN ASPART 100 UNITS/ML SQ PRN ×4 (06:03→20:37)
[2017-09-22 06:47] LABS: BASOPHILS % (AUTO) 0.7 % (0.0-2.0); EOSINOPHILS % (AUTO) 8.2 % (1.0-6.0); HEMATOCRIT 26.5 % (36-46); HEMOGLOBIN 9.4 g/dL (12.0-16.0); LYMPHOCYTES # (AUTO) 1.2 K/uL (1.0-4.8); LYMPHOCYTES % (AUTO) 17.6 % (22.0-44.0); MEAN CORPUSCULAR HEMOGLOBIN 30.7 pg (26.0-34.0); MEAN CORPUSCULAR HGB CONC 35.4 G/dL (31.0-37.0); MEAN CORPUSCULAR VOLUME 87 fL (80-100); MONOCYTES # (AUTO) 0.5 K/uL (0.1-1.0); MONOCYTES % (AUTO) 7.7 % (2.0-9.0); NEUTROPHILS # (AUTO) 4.4 K/uL (1.8-7.7); NEUTROPHILS % (AUTO) 65.8 % (40.0-70.0); PLATELET COUNT (AUTO) 238 K/uL (150-450); RED BLOOD CELL COUNT(AUTO) 3.06 MIL/uL (4.00-5.20); RED CELL DISTRIBUTION WIDTH 13.9 % (11.5-14.5); WHITE BLOOD COUNT (AUTO) 6.8 K/uL (4.5-11.0)
[2017-09-22 06:48] LABS: GLUCOSE COMMENT 1 Received Meds; GLUCOSE,POINT OF CARE 225 MG/DL (70-110)
[2017-09-22 06:48] LABS: GLUCOSE,POINT OF CARE 132 MG/DL (70-110)
[2017-09-22 06:49] LABS: GLUCOSE COMMENT 1 Received Meds; GLUCOSE,POINT OF CARE 143 MG/DL (70-110)
[2017-09-22] MEDS: FERROUS SULFATE 325 MG EC TABLET PO SCH (08:18)
[2017-09-22] MEDS: ATORVASTATIN CALCIUM 40 MG TABLET PO SCH (08:18)
[2017-09-22] MEDS: METOPROLOL TARTRATE 50 MG TABLET PO SCH ×2 (08:19→20:29)
[2017-09-22] MEDS: PANTOPRAZOLE SODIUM 40 MG/VIAL IVP SCH ×2 (08:19→20:49)
[2017-09-22] MEDS: ASPIRIN 81 MG EC TABLET PO SCH (08:19)
[2017-09-22] MEDS: NIFEdipine 60 MG ER TABLET PO SCH (08:19)
[2017-09-22] MEDS: EPOETIN ALFA 10,000 UNITS/ML VIAL SQ SCH (08:20)
[2017-09-22] MEDS: DOCUSATE SODIUM 100 MG CAPSULE PO SCH ×2 (08:21→20:29)
[2017-09-22 11:14] LABS: CALCIUM, TOTAL 8.1 mg/dL (8.8-10.5); CREATININE 4.08 mg/dL (0.60-1.30); POTASSIUM 4.1 mmol/L (3.5-5.1)
[2017-09-22 11:18] LABS: MAGNESIUM 2.1 mg/dL (1.80-2.40); PHOSPHORUS 4.3 mg/dL (2.5-4.9)
[2017-09-22] MEDS: HydrALAZINE HCL 25 MG TABLET PO SCH ×2 (17:16→20:49)
[2017-09-22 17:58] LABS: GLUCOSE COMMENT 1 Received Meds; GLUCOSE,POINT OF CARE 181 MG/DL (70-110)
[2017-09-23] MEDS: MORPHINE SULFATE 2 MG/ML SYRINGE IVP PRN ×2 (00:16→20:16)
[2017-09-23] MEDS: ONDANSETRON HCL 4 MG/2 ML VIAL IVP PRN ×2 (00:16→20:49)
[2017-09-23 05:30] VITALS: BP 156/75
[2017-09-23 06:08] LABS: GLUCOSE COMMENT 1 Received Meds; GLUCOSE,POINT OF CARE 225 MG/DL (70-110)
[2017-09-23 06:09] LABS: GLUCOSE COMMENT 1 Received Meds; GLUCOSE,POINT OF CARE 167 MG/DL (70-110)
[2017-09-23 06:09] LABS: GLUCOSE COMMENT 1 Received Meds; GLUCOSE,POINT OF CARE 158 MG/DL (70-110)
[2017-09-23 06:58] LABS: BASOPHILS # (AUTO) 0.03 K/uL (0.00-0.20); BASOPHILS % (AUTO) 0.4 % (0.0-2.0); EOSINOPHILS # (AUTO) 0.52 K/uL (0.00-0.70); EOSINOPHILS % (AUTO) 7.68 % (1.0-6.0); HEMATOCRIT 29.7 % (36-46); HEMOGLOBIN 10.1 g/dL (12.0-16.0); LYMPHOCYTES # (AUTO) 1.5 K/uL (1.0-4.8); LYMPHOCYTES % (AUTO) 21.4 % (22.0-44.0); MEAN CORPUSCULAR HEMOGLOBIN 29.8 pg (26.0-34.0); MEAN CORPUSCULAR VOLUME 88 fL (80-100); MONOCYTES # (AUTO) 0.5 K/uL (0.1-1.0); MONOCYTES % (AUTO) 7.4 % (2.0-9.0); NEUTROPHILS # (AUTO) 4.3 K/uL (1.8-7.7); NEUTROPHILS % (AUTO) 63.1 % (40.0-70.0); PLATELET COUNT (AUTO) 242 K/uL (150-450); RED BLOOD CELL COUNT(AUTO) 3.38 MIL/uL (4.00-5.20); RED CELL DISTRIBUTION WIDTH 13.7 % (11.5-14.5); WHITE BLOOD COUNT (AUTO) 6.8 K/uL (4.5-11.0)
[2017-09-23 07:17] LABS: ALBUMIN 2.5 g/dL (3.4-5.0); BILIRUBIN,TOTAL 0.3 mg/dL (0.1-1.0); CALCIUM, TOTAL 8.2 mg/dL (8.8-10.5); CREATININE 3.94 mg/dL (0.60-1.30); MAGNESIUM 2.1 mg/dL (1.80-2.40); POTASSIUM 4.2 mmol/L (3.5-5.1); TOTAL PROTEIN, SERUM 6.5 g/dL (6.4-8.2)
[2017-09-23 07:37] VITALS: BP 154/87
[2017-09-23] MEDS: PANTOPRAZOLE SODIUM 40 MG/VIAL IVP SCH ×2 (08:11→20:49)
[2017-09-23] MEDS: HydrALAZINE HCL 25 MG TABLET PO SCH ×3 (08:11→23:59)
[2017-09-23] MEDS: DOCUSATE SODIUM 100 MG CAPSULE PO SCH ×2 (08:11→20:50)
[2017-09-23] MEDS: ATORVASTATIN CALCIUM 40 MG TABLET PO SCH (08:12)
[2017-09-23] MEDS: ASPIRIN 81 MG EC TABLET PO SCH (08:12)
[2017-09-23] MEDS: METOPROLOL TARTRATE 50 MG TABLET PO SCH ×2 (08:12→20:50)
[2017-09-23] MEDS: NIFEdipine 60 MG ER TABLET PO SCH (08:12)
[2017-09-23] MEDS ORDERED: BENZOCAINE/RESORCINOL 30 GM CREAM TP ONE (11:30)
[2017-09-23 11:34] VITALS: BP 189/94
[2017-09-23] MEDS: LISINOPRIL 20 MG TABLET PO SCH (11:40)
[2017-09-23] MEDS ORDERED: HEPARIN SODIUM,PORCINE 1,000 UNITS/ML VIAL IVP ONE (12:00)
[2017-09-23] MEDS ORDERED: MIDAZOLAM HCL 2 MG/2 ML VIAL IVP ONE (12:00)
[2017-09-23] MEDS ORDERED: FentaNYL CITRATE-PF 100 MCG/2 ML VIAL IVP ONE (12:00)
[2017-09-23] MEDS ORDERED: PROPOFOL 1% 20 ML VIAL IVP ONE (12:00)
[2017-09-23] MEDS ORDERED: SODIUM CHLORIDE 0.9% 10 ML ONE (13:51)
[2017-09-23] MEDS ORDERED: LIDOCAINE HCL/PF 1% 30 ML VIAL ONE (13:51)
[2017-09-23] MEDS ORDERED: HEPARIN SODIUM,PORCINE 5,000 UNITS/ML VIAL SQ ONE (13:51)
[2017-09-23] MEDS ORDERED: SODIUM CHLORIDE 0.9% 0 ML IV ONE (13:51)
[2017-09-23] MEDS ORDERED: SODIUM CHLORIDE 0.9% 1,000 ML IV ONE ×2 (13:55→14:30)
[2017-09-23 15:52] LABS: GLUCOSE,POINT OF CARE 210 MG/DL (70-110)
[2017-09-23] MEDS ORDERED: HYDROmorphone 2 MG/ML SYRINGE IVP PRN (16:15)
[2017-09-23] MEDS ORDERED: FentaNYL CITRATE-PF 100 MCG/2 ML VIAL IVP PRN (16:15)
[2017-09-23] MEDS ORDERED: MEPERIDINE-PF 25 MG/ML SYRINGE IVP PRN (16:15)
[2017-09-23] MEDS: SODIUM BICARBONATE 650 MG TABLET PO SCH (18:25)
[2017-09-23] MEDS: INSULIN ASPART 100 UNITS/ML SQ PRN ×2 (18:29→21:46)
[2017-09-23 19:47] VITALS: BP 149/61
[2017-09-23] MEDS: OXYGEN THERAPY IH SCH (20:00)
[2017-09-23 23:56] VITALS: BP 158/90
[2017-09-24] MEDS: MORPHINE SULFATE 2 MG/ML SYRINGE IVP PRN ×4 (00:08→17:13)
[2017-09-24 05:00] VITALS: BP 167/82
[2017-09-24] MEDS: ONDANSETRON HCL 4 MG/2 ML VIAL IVP PRN ×3 (05:12→17:13)
[2017-09-24] MEDS: INSULIN ASPART 100 UNITS/ML SQ PRN ×4 (06:53→20:56)
[2017-09-24 07:17] LABS: BASOPHILS % (AUTO) 0.4 % (0.0-2.0); EOSINOPHILS % (AUTO) 5.4 % (1.0-6.0); HEMATOCRIT 27.3 % (36-46); HEMOGLOBIN 9.6 g/dL (12.0-16.0); LYMPHOCYTES # (AUTO) 1.3 K/uL (1.0-4.8); LYMPHOCYTES % (AUTO) 15.4 % (22.0-44.0); MEAN CORPUSCULAR HEMOGLOBIN 30.5 pg (26.0-34.0); MEAN CORPUSCULAR HGB CONC 35.1 G/dL (31.0-37.0); MEAN CORPUSCULAR VOLUME 87 fL (80-100); MONOCYTES # (AUTO) 0.6 K/uL (0.1-1.0); MONOCYTES % (AUTO) 6.8 % (2.0-9.0); PLATELET COUNT (AUTO) 253 K/uL (150-450); RED BLOOD CELL COUNT(AUTO) 3.14 MIL/uL (4.00-5.20); WHITE BLOOD COUNT (AUTO) 8.4 K/uL (4.5-11.0)
[2017-09-24 07:42] LABS: ALBUMIN 2.4 g/dL (3.4-5.0); BILIRUBIN,TOTAL 0.2 mg/dL (0.1-1.0); CALCIUM, TOTAL 8.2 mg/dL (8.8-10.5); CREATININE 3.85 mg/dL (0.60-1.30); MAGNESIUM 1.8 mg/dL (1.80-2.40); POTASSIUM 4.4 mmol/L (3.5-5.1); TOTAL PROTEIN, SERUM 6.6 g/dL (6.4-8.2)
[2017-09-24 07:44] VITALS: BP 181/91
[2017-09-24] MEDS: LISINOPRIL 20 MG TABLET PO SCH ×2 (08:22→21:00)
[2017-09-24] MEDS: ATORVASTATIN CALCIUM 40 MG TABLET PO SCH (08:22)
[2017-09-24] MEDS: METOPROLOL TARTRATE 50 MG TABLET PO SCH (08:22)
[2017-09-24] MEDS: PANTOPRAZOLE SODIUM 40 MG/VIAL IVP SCH ×2 (08:22→20:44)
[2017-09-24] MEDS: NIFEdipine 60 MG ER TABLET PO SCH (08:22)
[2017-09-24] MEDS: OXYGEN THERAPY IH SCH ×2 (08:22→20:00)
[2017-09-24] MEDS: ASPIRIN 81 MG EC TABLET PO SCH (08:23)
[2017-09-24] MEDS: DOCUSATE SODIUM 100 MG CAPSULE PO SCH ×2 (08:23→20:51)
[2017-09-24] MEDS: HydrALAZINE HCL 25 MG TABLET PO SCH ×3 (08:23→21:00)
[2017-09-24] MEDS: SODIUM BICARBONATE 650 MG TABLET PO SCH (08:23)
[2017-09-24] MEDS ORDERED: LISINOPRIL 20 MG TABLET PO SCH (09:00)
[2017-09-24 09:37] LABS: APPEARANCE,URINE CLEAR (CLEAR); GLUCOSE, URINE (UA) 250 mg/dL (NEGATIVE); KETONES,URINE NEGATIVE (NEGATIVE); LEUKOCYTE ESTERASE ,URINE NEGATIVE (NEGATIVE); OCCULT BLOOD,URINE NEGATIVE (NEGATIVE); PROTEIN,URINE SEE CONFIRM (NEGATIVE)
[2017-09-24] MEDS ORDERED: HydrALAZINE HCL 25 MG TABLET PO ONE (10:45)
[2017-09-24 10:46] LABS: ADD UA MICROSCOPIC YES; RBC,URINE 0-2 /HPF (0-2); SULFOSALICYLIC ACID,URINE 4+ (Negative)
[2017-09-24 10:49] LABS: COARSE GRANULAR CASTS,URINE 0-2 /LPF (None Seen); SQUAMOUS EPITHELIAL CELL,UR Few /LPF (None Seen)
[2017-09-24 10:50] LABS: HYALINE CASTS, URINE 0-2 /LPF (None Seen)
[2017-09-24 11:35] VITALS: BP 178/77
[2017-09-24 12:27] LABS: GLUCOSE COMMENT 1 Received Meds; GLUCOSE,POINT OF CARE 269 MG/DL (70-110)
[2017-09-24 12:27] LABS: GLUCOSE COMMENT 1 Received Meds; GLUCOSE,POINT OF CARE 203 MG/DL (70-110)
[2017-09-24 12:27] LABS: GLUCOSE COMMENT 1 Received Meds; GLUCOSE,POINT OF CARE 154 MG/DL (70-110)
[2017-09-24 16:00] VITALS: BP 137/66
[2017-09-24] MEDS ORDERED: HydrALAZINE HCL 25 MG TABLET PO SCH ×2 (16:00)
[2017-09-24 19:47] VITALS: BP 153/85
[2017-09-24] MEDS: CARVEDILOL 12.5 MG TABLET PO SCH (20:50)
[2017-09-25 00:24] VITALS: BP 135/59
[2017-09-25 02:58] LABS: GLUCOSE COMMENT 1 Received Meds; GLUCOSE,POINT OF CARE 209 MG/DL (70-110)
[2017-09-25 02:58] LABS: GLUCOSE COMMENT 1 Received Meds; GLUCOSE,POINT OF CARE 156 MG/DL (70-110)
[2017-09-25 03:27] LABS: GLUCOSE COMMENT 1 Received Meds; GLUCOSE,POINT OF CARE 209 MG/DL (70-110)
[2017-09-25 05:16] VITALS: BP 158/78
[2017-09-25] MEDS: INSULIN ASPART 100 UNITS/ML SQ PRN ×2 (06:32→12:09)
[2017-09-25 06:39] LABS: BASOPHILS # (AUTO) 0.04 K/uL (0.00-0.20); BASOPHILS % (AUTO) 0.5 % (0.0-2.0); EOSINOPHILS # (AUTO) 0.46 K/uL (0.00-0.70); HEMATOCRIT 26.5 % (36-46); HEMOGLOBIN 9.5 g/dL (12.0-16.0); LYMPHOCYTES # (AUTO) 1.8 K/uL (1.0-4.8); MEAN CORPUSCULAR HEMOGLOBIN 30.4 pg (26.0-34.0); MEAN CORPUSCULAR HGB CONC 35.7 G/dL (31.0-37.0); MEAN CORPUSCULAR VOLUME 85 fL (80-100); MONOCYTES # (AUTO) 0.6 K/uL (0.1-1.0); MONOCYTES % (AUTO) 7.1 % (2.0-9.0); NEUTROPHILS # (AUTO) 4.9 K/uL (1.8-7.7); NEUTROPHILS % (AUTO) 63.4 % (40.0-70.0); PLATELET COUNT (AUTO) 269 K/uL (150-450); RED BLOOD CELL COUNT(AUTO) 3.12 MIL/uL (4.00-5.20); RED CELL DISTRIBUTION WIDTH 14.1 % (11.5-14.5); WHITE BLOOD COUNT (AUTO) 7.7 K/uL (4.5-11.0)
[2017-09-25 07:00] LABS: ALBUMIN 2.3 g/dL (3.4-5.0); BILIRUBIN,TOTAL 0.2 mg/dL (0.1-1.0); CALCIUM, TOTAL 8.3 mg/dL (8.8-10.5); CREATININE 4.12 mg/dL (0.60-1.30); MAGNESIUM 1.8 mg/dL (1.80-2.40); POTASSIUM 4.3 mmol/L (3.5-5.1); TOTAL PROTEIN, SERUM 6.3 g/dL (6.4-8.2)
[2017-09-25 07:24] VITALS: BP 143/79
[2017-09-25] MEDS: PANTOPRAZOLE SODIUM 40 MG/VIAL IVP SCH (08:58)
[2017-09-25] MEDS: OXYGEN THERAPY IH SCH (08:58)
[2017-09-25] MEDS: ASPIRIN 81 MG EC TABLET PO SCH (08:59)
[2017-09-25] MEDS: CARVEDILOL 12.5 MG TABLET PO SCH (08:59)
[2017-09-25] MEDS: SODIUM BICARBONATE 650 MG TABLET PO SCH (08:59)
[2017-09-25] MEDS ORDERED: NIFEdipine 90 MG ER TABLET PO SCH (09:00)
[2017-09-25] MEDS: DOCUSATE SODIUM 100 MG CAPSULE PO SCH (09:00)
[2017-09-25] MEDS: LISINOPRIL 20 MG TABLET PO SCH (09:00)
[2017-09-25] MEDS ORDERED: HydrALAZINE HCL 25 MG TABLET PO SCH (09:00)
[2017-09-25] MEDS: ATORVASTATIN CALCIUM 40 MG TABLET PO SCH (09:00)
[2017-09-25 11:42] VITALS: BP 161/95
[2017-09-25 20:38] LABS: GLUCOSE COMMENT 1 Received Meds; GLUCOSE,POINT OF CARE 255 MG/DL (70-110)
[2017-09-25 20:38] LABS: GLUCOSE,POINT OF CARE 173 MG/DL (70-110)
[2017-09-27] MEDS ORDERED: EPOETIN ALFA 10,000 UNITS/ML VIAL SQ SCH (09:00)
== END 2017-09-25 14:45 | disposition home or self-care (01) | DRG 951 ==
LOC: EMS 09:17 → 5S 11:43 → 5N 09-23 09:57
PROVIDERS: ADMIT Internal Medicine; ATTEND Internal Medicine
PROC: 30233N1 Transfusion of Nonautologous Red Blood Cells into Peripheral Vein, Percutaneous Approach (ICD-10-PCS; 2017-09-19)
PROC: 3E0234Z Introduction of Serum, Toxoid and Vaccine into Muscle, Percutaneous Approach (ICD-10-PCS; 2017-09-19)
PROC: 0DB68ZX Excision of Stomach, Via Natural or Artificial Opening Endoscopic, Diagnostic (ICD-10-PCS; 2017-09-20)
PROC: 03180AD Bypass Left Brachial Artery to Upper Arm Vein with Autologous Arterial Tissue, Open Approach (ICD-10-PCS; principal; 2017-09-23 15:45)
DX: K85.90 Acute pancreatitis without necrosis or infection, unspecified (principal); E43 Unspecified severe protein-calorie malnutrition; E11.21 Type 2 diabetes mellitus with diabetic nephropathy; I12.0 Hypertensive chronic kidney disease with stage 5 chronic kidney disease or end stage renal disease; N18.6 End stage renal disease; E86.9 Volume depletion, unspecified; E87.1 Hypo-osmolality and hyponatremia; D63.1 Anemia in chronic kidney disease; E11.22 Type 2 diabetes mellitus with diabetic chronic kidney disease; E11.65 Type 2 diabetes mellitus with hyperglycemia; E66.9 Obesity, unspecified; E78.00 Pure hypercholesterolemia, unspecified; K20.9 Esophagitis, unspecified; K29.70 Gastritis, unspecified, without bleeding; K59.00 Constipation, unspecified; T37.3X5A Adverse effect of other antiprotozoal drugs, initial encounter; Z79.4 Long term (current) use of insulin; Z86.19 Personal history of other infectious and parasitic diseases; Z87.11 Personal history of peptic ulcer disease; Z87.442 Personal history of urinary calculi; Z99.2 Dependence on renal dialysis; Z23 Encounter for immunization
CPT/HCPCS: 76700; 82270; 82271; 82570; 82728; 82962; 83540; 83550; 83735; 83874; 83930; 83935; 83970; 84100; 84156; 84295; 84300; 84540; 86850; 86900; 86901; 86920; 87086; 88305; 88312; 90471; 93005; 93306; 93970; 96361; 96374; 96375; 96376; 99285; C9113; J0360; J0690; J0885; J1644; J2250; J2270; J2405; J2704; J2765; J3010; J3490; J7030; J7050; J7060; P9016

== ENCOUNTER 2017-11-15 12:23 | Inpatient (IN) | payer MEDICAID ==
[2017-11-15] VITALS (16 sets, daily range): BP systolic 124–172; BP diastolic 68–95
[~2017-11-15] VITALS: Ht 152.4 cm; Wt 71.9 kg
[~2017-11-15 12:23] MED LIST changes: -ACET1TAB12 PO; -CEPH500T PO; -CIPR-140 PO; -FERR-82 PO; -FOLI1CAP2 PO; -GABA100C PO; -INSLAN SQ; -INSNOV SQ; +LISI-662 PO; -METO25 PO; -METR500T4 PO; -NIFE10CA PO; -NIFE30TA5 PO; +NIFE60TA71 PO; +ONDA4 PO; -PANT40TA25 PO; +PROM25 PO; -VALS160T2 PO
[2017-11-15] MEDS ORDERED: INSU100V SQ (13:23)
[2017-11-15] MEDS ORDERED: INSLAN SQ (13:23)
[2017-11-15] MEDS ORDERED: FURO20 PO (13:23)
[2017-11-15] MEDS ORDERED: ESOM20CA31 PO (13:23)
[2017-11-15 13:33] LABS: GLUCOSE,POINT OF CARE 242 MG/DL (70-110)
[2017-11-15 14:05] LABS: BASOPHILS % (AUTO) 0.6 % (0.0-2.0); EOSINOPHILS % (AUTO) 4.2 % (1.0-6.0); LYMPHOCYTES # (AUTO) 1.2 K/uL (1.0-4.8); LYMPHOCYTES % (AUTO) 14.8 % (22.0-44.0); MEAN CORPUSCULAR HEMOGLOBIN 30.1 pg (26.0-34.0); MEAN CORPUSCULAR HGB CONC 34.2 G/dL (31.0-37.0); MEAN CORPUSCULAR VOLUME 88 fL (80-100); MONOCYTES # (AUTO) 0.5 K/uL (0.1-1.0); MONOCYTES % (AUTO) 6.4 % (2.0-9.0); NEUTROPHILS # (AUTO) 5.9 K/uL (1.8-7.7); PLATELET COUNT (AUTO) 296 K/uL (150-450); RED BLOOD CELL COUNT(AUTO) 2.14 MIL/uL (4.00-5.20); RED CELL DISTRIBUTION WIDTH 14.3 % (11.5-14.5)
[2017-11-15 14:10] LABS: HEMATOCRIT 18.8 % (36-46); HEMOGLOBIN 6.4 g/dL (12.0-16.0)
[2017-11-15 14:14] LABS: CALCIUM, TOTAL 8.1 mg/dL (8.8-10.5); CREATININE 6.6 mg/dL (0.60-1.30); POTASSIUM 5.7 mmol/L (3.5-5.1)
[2017-11-15 14:17] LABS: ALBUMIN 2.6 g/dL (3.4-5.0); BILIRUBIN,TOTAL 0.3 mg/dL (0.1-1.0)
[2017-11-15] MEDS ORDERED: ONDANSETRON HCL 4 MG/2 ML VIAL IVP PRN (15:15)
[2017-11-15] MEDS ORDERED: ACETAMINOPHEN 325 MG TABLET PO PRN ×2 (15:15→15:45)
[2017-11-15] MEDS ORDERED: 0.9% SODIUM CHLORIDE 10 ML SYRINGE IVP PRN (15:15)
[2017-11-15] MEDS ORDERED: SODIUM POLYSTYRENE SULFONATE 15 GM/60 ML SUSPENSION BOTTLE PO ONE (15:45)
[2017-11-15] MEDS ORDERED: BISACODYL 10 MG RECTAL RECTAL SUPPOSITORY PR PRN (15:45)
[2017-11-15] MEDS ORDERED: DEXTROSE 50%-WATER 25 GM/50 ML SYRINGE IVP PRN (15:45)
[2017-11-15] MEDS ORDERED: ALBUTEROL SULFATE 2.5 MG/0.5 ML NEB SOLUTION NEB PRN ×2 (15:45→23:45)
[2017-11-15] MEDS ORDERED: SODIUM CHLORIDE 0.9% 500 ML IV ONE (16:16)
[2017-11-15] MEDS ORDERED: DiphenhydrAMINE HCL 25 MG CAPSULE PO ONE (17:30)
[2017-11-15 18:37] LABS: GLUCOSE,POINT OF CARE 95 MG/DL (70-110)
[2017-11-15] MEDS: PANTOPRAZOLE SODIUM 40 MG DR TABLET PO SCH (18:47)
[2017-11-15] MEDS: VITAMIN B COMP/VIT C/FOLIC ACID CAPSULE PO SCH (18:48)
[2017-11-15] MEDS ORDERED: FUROSEMIDE 40 MG/4 ML VIAL IVP ONE (20:00)
[2017-11-15] MEDS: ATORVASTATIN CALCIUM 20 MG TABLET PO SCH (21:00)
[2017-11-15] MEDS: DOCUSATE SODIUM 100 MG CAPSULE PO SCH (21:00)
[2017-11-15] MEDS ORDERED: NITROGLYCERIN 0.3 MG SUBLINGUAL TABLET #100 SL PRN (23:30)
[2017-11-15] MEDS: LABETALOL HCL 5 MG/ML 20 ML VIAL IVP PRN (23:54)
[2017-11-16] VITALS (9 sets, daily range): BP systolic 107–191; BP diastolic 61–95
[2017-11-16] MEDS: LABETALOL HCL 5 MG/ML 20 ML VIAL IVP PRN ×2 (00:35→05:57)
[2017-11-16 04:57] LABS: GLUCOSE COMMENT 1 Juice/Food/D50 Given; GLUCOSE,POINT OF CARE 178 MG/DL (70-110)
[2017-11-16] MEDS: MORPHINE SULFATE 2 MG/ML SYRINGE IVP PRN (05:36)
[2017-11-16 06:12] LABS: GLUCOSE COMMENT 1 Juice/Food/D50 Given; GLUCOSE,POINT OF CARE 127 MG/DL (70-110)
[2017-11-16 06:33] LABS: BASOPHILS # (AUTO) 0.04 K/uL (0.00-0.20); BASOPHILS % (AUTO) 0.5 % (0.0-2.0); EOSINOPHILS # (AUTO) 0.34 K/uL (0.00-0.70); EOSINOPHILS % (AUTO) 4.35 % (1.0-6.0); HEMATOCRIT 24.8 % (36-46); HEMOGLOBIN 8.6 g/dL (12.0-16.0); LYMPHOCYTES # (AUTO) 1.4 K/uL (1.0-4.8); LYMPHOCYTES % (AUTO) 18.1 % (22.0-44.0); MEAN CORPUSCULAR HEMOGLOBIN 30.1 pg (26.0-34.0); MEAN CORPUSCULAR HGB CONC 34.8 G/dL (31.0-37.0); MEAN CORPUSCULAR VOLUME 87 fL (80-100); MONOCYTES # (AUTO) 0.5 K/uL (0.1-1.0); MONOCYTES % (AUTO) 6.5 % (2.0-9.0); NEUTROPHILS # (AUTO) 5.5 K/uL (1.8-7.7); NEUTROPHILS % (AUTO) 70.6 % (40.0-70.0); PLATELET COUNT (AUTO) 265 K/uL (150-450); RED BLOOD CELL COUNT(AUTO) 2.86 MIL/uL (4.00-5.20); RED CELL DISTRIBUTION WIDTH 15.4 % (11.5-14.5); WHITE BLOOD COUNT (AUTO) 7.8 K/uL (4.5-11.0)
[2017-11-16 06:56] LABS: CREATININE 6.63 mg/dL (0.60-1.30); POTASSIUM 4.6 mmol/L (3.5-5.1)
[2017-11-16] MEDS ORDERED: EPOETIN ALFA 10,000 UNITS/ML 2 ML VIAL SQ PRN (07:00)
[2017-11-16] MEDS: ASPIRIN 81 MG CHEWABLE TABLET PO SCH (07:54)
[2017-11-16] MEDS: DOCUSATE SODIUM 100 MG CAPSULE PO SCH ×2 (07:54→20:29)
[2017-11-16] MEDS: VITAMIN B COMP/VIT C/FOLIC ACID CAPSULE PO SCH (07:54)
[2017-11-16] MEDS: PANTOPRAZOLE SODIUM 40 MG DR TABLET PO SCH (07:54)
[2017-11-16] MEDS ORDERED: AmLODIPine BESYLATE 10 MG TABLET PO SCH (09:00)
[2017-11-16] MEDS: -PHARMACY NOTE- MISC SCH ×2 (09:00)
[2017-11-16] MEDS: LISINOPRIL 20 MG TABLET PO SCH ×2 (11:02→20:29)
[2017-11-16] MEDS: INSULIN ASPART 100 UNITS/ML SQ PRN ×3 (11:43→21:27)
[2017-11-16] MEDS ORDERED: SODIUM CHLORIDE 0.9% 1,000 ML IV ONE (13:10)
[2017-11-16 14:42] LABS: GLUCOSE,POINT OF CARE 289 MG/DL (70-110)
[2017-11-16 16:32] LABS: GLUCOSE,POINT OF CARE 180 MG/DL (70-110)
[2017-11-16] MEDS: ATORVASTATIN CALCIUM 20 MG TABLET PO SCH (20:28)
[2017-11-16] MEDS ORDERED: NIFEdipine 60 MG ER TABLET PO SCH (21:00)
[2017-11-16] MEDS: CloNIDine HCL 0.1 MG TABLET PO PRN (21:26)
[2017-11-16 22:12] LABS: GLUCOSE COMMENT 1 Received Meds; GLUCOSE,POINT OF CARE 287 MG/DL (70-110)
[2017-11-17] VITALS (7 sets, daily range): BP systolic 136–189; BP diastolic 73–99
[2017-11-17] MEDS: MORPHINE SULFATE 2 MG/ML SYRINGE IVP PRN (04:20)
[2017-11-17 06:56] LABS: CALCIUM, TOTAL 8.3 mg/dL (8.8-10.5); CREATININE 5.24 mg/dL (0.60-1.30); PHOSPHORUS 5.7 mg/dL (2.5-4.9); POTASSIUM 4.2 mmol/L (3.5-5.1)
[2017-11-17] MEDS ORDERED: SODIUM CHLORIDE 0.9% 2,000 ML IV ONE (07:32)
[2017-11-17] MEDS ORDERED: MANNITOL 25%-12.5 GM/50 ML VIAL IVP PRN (09:45)
[2017-11-17] MEDS ORDERED: LIDOCAINE HCL/PF 1% 2 ML VIAL ID PRN (09:45)
[2017-11-17] MEDS: DOCUSATE SODIUM 100 MG CAPSULE PO SCH ×2 (11:13→20:20)
[2017-11-17] MEDS: ASPIRIN 81 MG CHEWABLE TABLET PO SCH (11:13)
[2017-11-17] MEDS: CloNIDine HCL 0.1 MG TABLET PO PRN (11:13)
[2017-11-17] MEDS: PANTOPRAZOLE SODIUM 40 MG DR TABLET PO SCH (11:14)
[2017-11-17] MEDS: VITAMIN B COMP/VIT C/FOLIC ACID CAPSULE PO SCH (11:14)
[2017-11-17] MEDS: LISINOPRIL 20 MG TABLET PO SCH ×2 (11:14→20:21)
[2017-11-17] MEDS ORDERED: -PHARMACY VACCINE NOTE- MISC ONE ×2 (12:45)
[2017-11-17 14:57] LABS: GLUCOSE,POINT OF CARE 137 MG/DL (70-110)
[2017-11-17] MEDS: LABETALOL HCL 200 MG TABLET PO SCH ×2 (15:18→20:20)
[2017-11-17 17:07] LABS: GLUCOSE,POINT OF CARE 133 MG/DL (70-110)
[2017-11-17 17:07] LABS: GLUCOSE COMMENT 1 Received Meds; GLUCOSE,POINT OF CARE 151 MG/DL (70-110)
[2017-11-17] MEDS: CALCIUM ACETATE 667 MG CAPSULE PO SCH (17:58)
[2017-11-17] MEDS: INSULIN ASPART 100 UNITS/ML SQ PRN ×2 (18:00→20:48)
[2017-11-17] MEDS: ATORVASTATIN CALCIUM 20 MG TABLET PO SCH (20:21)
[2017-11-17] MEDS: NIFEdipine 90 MG ER TABLET PO SCH (20:28)
[2017-11-17] MEDS ORDERED: ZOLPIDEM TARTRATE 5 MG TABLET PO ONE (21:00)
[2017-11-17] MEDS ORDERED: ONDANSETRON HCL 4 MG/2 ML VIAL IM PRN (22:30)
[2017-11-18] MEDS: ONDANSETRON HCL 4 MG/2 ML VIAL IVP PRN ×3 (02:58→16:46)
[2017-11-18 04:29] VITALS: BP 141/72
[2017-11-18 05:28] LABS: GLUCOSE COMMENT 1 Received Meds; GLUCOSE,POINT OF CARE 162 MG/DL (70-110)
[2017-11-18 06:30] LABS: BASOPHILS % (AUTO) 0.7 % (0.0-2.0); EOSINOPHILS % (AUTO) 4.5 % (1.0-6.0); HEMATOCRIT 25.3 % (36-46); HEMOGLOBIN 8.7 g/dL (12.0-16.0); LYMPHOCYTES # (AUTO) 1.7 K/uL (1.0-4.8); LYMPHOCYTES % (AUTO) 19.7 % (22.0-44.0); MEAN CORPUSCULAR HEMOGLOBIN 29.7 pg (26.0-34.0); MEAN CORPUSCULAR HGB CONC 34.4 G/dL (31.0-37.0); MEAN CORPUSCULAR VOLUME 86 fL (80-100); MONOCYTES # (AUTO) 0.6 K/uL (0.1-1.0); NEUTROPHILS # (AUTO) 5.8 K/uL (1.8-7.7); NEUTROPHILS % (AUTO) 68.1 % (40.0-70.0); PLATELET COUNT (AUTO) 269 K/uL (150-450); RED BLOOD CELL COUNT(AUTO) 2.94 MIL/uL (4.00-5.20); RED CELL DISTRIBUTION WIDTH 14.7 % (11.5-14.5); WHITE BLOOD COUNT (AUTO) 8.5 K/uL (4.5-11.0)
[2017-11-18 06:50] LABS: CREATININE 4.58 mg/dL (0.60-1.30); POTASSIUM 4.2 mmol/L (3.5-5.1)
[2017-11-18 08:14] VITALS: BP 132/76
[2017-11-18] MEDS: VITAMIN B COMP/VIT C/FOLIC ACID CAPSULE PO SCH (08:44)
[2017-11-18] MEDS: DOCUSATE SODIUM 100 MG CAPSULE PO SCH ×2 (08:44→21:04)
[2017-11-18] MEDS: PANTOPRAZOLE SODIUM 40 MG DR TABLET PO SCH (08:44)
[2017-11-18] MEDS: CALCIUM ACETATE 667 MG CAPSULE PO SCH ×3 (08:44→17:57)
[2017-11-18] MEDS: LISINOPRIL 20 MG TABLET PO SCH ×2 (08:44→21:04)
[2017-11-18] MEDS: ASPIRIN 81 MG CHEWABLE TABLET PO SCH (08:44)
[2017-11-18] MEDS: LABETALOL HCL 200 MG TABLET PO SCH ×3 (09:00→21:04)
[2017-11-18 11:10] VITALS: BP 156/77
[2017-11-18] MEDS: INSULIN ASPART 100 UNITS/ML SQ PRN ×3 (12:13→21:10)
[2017-11-18] MEDS ORDERED: LIDOCAINE HCL/PF 1% 2 ML VIAL IM ONE (14:54)
[2017-11-18 15:29] VITALS: BP 163/86
[2017-11-18] MEDS: CloNIDine HCL 0.1 MG TABLET PO PRN (16:46)
[2017-11-18] MEDS: METOCLOPRAMIDE HCL 10 MG TABLET PO SCH (17:57)
[2017-11-18] MEDS ORDERED: HydrALAZINE HCL 20 MG/ML VIAL IVP PRN (18:30)
[2017-11-18 19:46] VITALS: BP 162/94
[2017-11-18] MEDS: NIFEdipine 90 MG ER TABLET PO SCH (21:04)
[2017-11-18] MEDS: ATORVASTATIN CALCIUM 20 MG TABLET PO SCH (21:04)
[2017-11-19 00:08] VITALS: BP 157/83
[2017-11-19 05:28] LABS: GLUCOSE COMMENT 1 Received Meds; GLUCOSE,POINT OF CARE 224 MG/DL (70-110)
[2017-11-19 05:28] LABS: GLUCOSE COMMENT 1 Received Meds; GLUCOSE,POINT OF CARE 206 MG/DL (70-110)
[2017-11-19 05:39] VITALS: BP 136/71
[2017-11-19] MEDS: METOCLOPRAMIDE HCL 10 MG TABLET PO SCH ×2 (05:47→17:53)
[2017-11-19] MEDS: ONDANSETRON HCL 4 MG/2 ML VIAL IVP PRN ×2 (05:47→20:14)
[2017-11-19 07:27] LABS: GLUCOSE,POINT OF CARE 315 MG/DL (70-110)
[2017-11-19 07:27] LABS: GLUCOSE,POINT OF CARE 174 MG/DL (70-110)
[2017-11-19 07:27] LABS: GLUCOSE COMMENT 1 Received Meds; GLUCOSE,POINT OF CARE 285 MG/DL (70-110)
[2017-11-19 07:27] LABS: GLUCOSE COMMENT 1 Received Meds; GLUCOSE,POINT OF CARE 176 MG/DL (70-110)
[2017-11-19 07:27] LABS: GLUCOSE COMMENT 1 Received Meds; GLUCOSE,POINT OF CARE 164 MG/DL (70-110)
[2017-11-19] MEDS ORDERED: SODIUM CHLORIDE 0.9% 2,000 ML IV ONE (07:29)
[2017-11-19 08:36] VITALS: BP 131/75
[2017-11-19] MEDS: VITAMIN B COMP/VIT C/FOLIC ACID CAPSULE PO SCH (08:37)
[2017-11-19] MEDS: CALCIUM ACETATE 667 MG CAPSULE PO SCH ×3 (08:37→17:53)
[2017-11-19] MEDS: DOCUSATE SODIUM 100 MG CAPSULE PO SCH ×2 (08:37→20:53)
[2017-11-19] MEDS: ASPIRIN 81 MG CHEWABLE TABLET PO SCH (08:37)
[2017-11-19] MEDS: PANTOPRAZOLE SODIUM 40 MG DR TABLET PO SCH (08:37)
[2017-11-19] MEDS: LABETALOL HCL 200 MG TABLET PO SCH (11:57)
[2017-11-19] MEDS: LISINOPRIL 20 MG TABLET PO SCH ×2 (11:58→20:53)
[2017-11-19 11:59] VITALS: BP 144/81
[2017-11-19] MEDS ORDERED: LIDOCAINE HCL/PF 1% 2 ML VIAL INJ ONE (12:00)
[2017-11-19] MEDS: INSULIN ASPART 100 UNITS/ML SQ PRN ×3 (12:02→21:01)
[2017-11-19 20:17] LABS: GLUCOSE COMMENT 1 Received Meds; GLUCOSE,POINT OF CARE 203 MG/DL (70-110)
[2017-11-19 20:45] VITALS: BP 154/87
[2017-11-19] MEDS: ATORVASTATIN CALCIUM 20 MG TABLET PO SCH (20:53)
[2017-11-19] MEDS: NIFEdipine 90 MG ER TABLET PO SCH (20:53)
[2017-11-19 21:47] LABS: GLUCOSE COMMENT 1 Received Meds; GLUCOSE,POINT OF CARE 155 MG/DL (70-110)
[2017-11-19 21:52] LABS: GLUCOSE COMMENT 1 Received Meds; GLUCOSE,POINT OF CARE 221 MG/DL (70-110)
[2017-11-20 00:25] VITALS: BP 150/75
[2017-11-20] MEDS: LABETALOL HCL 200 MG TABLET PO SCH ×3 (00:45→20:52)
[2017-11-20 04:34] VITALS: BP 157/77
[2017-11-20 06:27] LABS: BASOPHILS # (AUTO) 0.05 K/uL (0.00-0.20); BASOPHILS % (AUTO) 0.6 % (0.0-2.0); EOSINOPHILS # (AUTO) 0.28 K/uL (0.00-0.70); HEMATOCRIT 23.5 % (36-46); HEMOGLOBIN 7.9 g/dL (12.0-16.0); LYMPHOCYTES # (AUTO) 1.3 K/uL (1.0-4.8); LYMPHOCYTES % (AUTO) 15.4 % (22.0-44.0); MEAN CORPUSCULAR HEMOGLOBIN 29.4 pg (26.0-34.0); MEAN CORPUSCULAR HGB CONC 33.4 G/dL (31.0-37.0); MEAN CORPUSCULAR VOLUME 88 fL (80-100); MONOCYTES # (AUTO) 0.5 K/uL (0.1-1.0); MONOCYTES % (AUTO) 5.2 % (2.0-9.0); NEUTROPHILS # (AUTO) 6.5 K/uL (1.8-7.7); NEUTROPHILS % (AUTO) 75.5 % (40.0-70.0); PLATELET COUNT (AUTO) 242 K/uL (150-450); RED BLOOD CELL COUNT(AUTO) 2.67 MIL/uL (4.00-5.20); WHITE BLOOD COUNT (AUTO) 8.6 K/uL (4.5-11.0)
[2017-11-20] MEDS: METOCLOPRAMIDE HCL 10 MG TABLET PO SCH ×2 (06:31→17:44)
[2017-11-20] MEDS: INSULIN ASPART 100 UNITS/ML SQ PRN ×4 (06:33→21:32)
[2017-11-20 07:06] LABS: CREATININE 4.1 mg/dL (0.60-1.30); MAGNESIUM 1.6 mg/dL (1.80-2.40); PHOSPHORUS 3.5 mg/dL (2.5-4.9); POTASSIUM 4.6 mmol/L (3.5-5.1)
[2017-11-20 07:31] VITALS: BP 147/64
[2017-11-20 07:48] LABS: GLUCOSE COMMENT 1 Received Meds; GLUCOSE,POINT OF CARE 254 MG/DL (70-110)
[2017-11-20] MEDS: PANTOPRAZOLE SODIUM 40 MG DR TABLET PO SCH (07:57)
[2017-11-20] MEDS: DOCUSATE SODIUM 100 MG CAPSULE PO SCH ×2 (07:57→20:52)
[2017-11-20] MEDS: ASPIRIN 81 MG CHEWABLE TABLET PO SCH (07:57)
[2017-11-20] MEDS: VITAMIN B COMP/VIT C/FOLIC ACID CAPSULE PO SCH (07:57)
[2017-11-20] MEDS: CALCIUM ACETATE 667 MG CAPSULE PO SCH ×3 (07:57→17:44)
[2017-11-20] MEDS: LISINOPRIL 20 MG TABLET PO SCH ×2 (07:57→20:52)
[2017-11-20 11:10] VITALS: BP 119/53
[2017-11-20] MEDS ORDERED: LABE200T PO (12:32)
[2017-11-20] MEDS ORDERED: METO-296 PO (12:33)
[2017-11-20] MEDS ORDERED: PANT40TA25 PO (12:34)
[2017-11-20] MEDS ORDERED: VITA1CAP PO (12:35)
[2017-11-20 13:27] LABS: GLUCOSE,POINT OF CARE 197 MG/DL (70-110)
[2017-11-20] MEDS: MORPHINE SULFATE 2 MG/ML SYRINGE IVP PRN ×2 (14:38→22:51)
[2017-11-20 15:45] VITALS: BP 141/83
[2017-11-20 20:02] VITALS: BP 144/81
[2017-11-20 20:07] LABS: GLUCOSE,POINT OF CARE 156 MG/DL (70-110)
[2017-11-20] MEDS: NIFEdipine 90 MG ER TABLET PO SCH (20:52)
[2017-11-20] MEDS: ATORVASTATIN CALCIUM 20 MG TABLET PO SCH (20:52)
[2017-11-20] MEDS: ONDANSETRON HCL 4 MG/2 ML VIAL IVP PRN (22:51)
[2017-11-21 00:17] VITALS: BP 155/82
[2017-11-21 00:19] LABS: GLUCOSE COMMENT 1 Received Meds; GLUCOSE,POINT OF CARE 177 MG/DL (70-110)
[2017-11-21 03:58] VITALS: BP 148/76
[2017-11-21] MEDS: METOCLOPRAMIDE HCL 10 MG TABLET PO SCH (06:33)
[2017-11-21 07:07] VITALS: BP 138/70
[2017-11-21 07:26] LABS: BASOPHILS % (AUTO) 0.3 % (0.0-2.0); EOSINOPHILS % (AUTO) 3.3 % (1.0-6.0); HEMATOCRIT 22.4 % (36-46); HEMOGLOBIN 7.7 g/dL (12.0-16.0); LYMPHOCYTES # (AUTO) 1.6 K/uL (1.0-4.8); LYMPHOCYTES % (AUTO) 17.9 % (22.0-44.0); MEAN CORPUSCULAR HEMOGLOBIN 30.2 pg (26.0-34.0); MEAN CORPUSCULAR HGB CONC 34.5 G/dL (31.0-37.0); MEAN CORPUSCULAR VOLUME 88 fL (80-100); MONOCYTES # (AUTO) 0.6 K/uL (0.1-1.0); MONOCYTES % (AUTO) 6.1 % (2.0-9.0); NEUTROPHILS # (AUTO) 6.6 K/uL (1.8-7.7); NEUTROPHILS % (AUTO) 72.4 % (40.0-70.0); PLATELET COUNT (AUTO) 256 K/uL (150-450); RED BLOOD CELL COUNT(AUTO) 2.56 MIL/uL (4.00-5.20); RED CELL DISTRIBUTION WIDTH 14.8 % (11.5-14.5); WHITE BLOOD COUNT (AUTO) 9.1 K/uL (4.5-11.0)
[2017-11-21 07:34] LABS: CALCIUM, TOTAL 8.4 mg/dL (8.8-10.5); CREATININE 4.92 mg/dL (0.60-1.30); POTASSIUM 4.6 mmol/L (3.5-5.1)
[2017-11-21] MEDS: CALCIUM ACETATE 667 MG CAPSULE PO SCH ×2 (08:00→12:14)
[2017-11-21 08:08] LABS: MAGNESIUM 1.7 mg/dL (1.80-2.40)
[2017-11-21] MEDS ORDERED: SODIUM CHLORIDE 0.9% 2,000 ML IV ONE (08:11)
[2017-11-21] MEDS: LISINOPRIL 20 MG TABLET PO SCH (09:00)
[2017-11-21] MEDS: -PHARMACY NOTE- MISC SCH ×2 (09:00)
[2017-11-21 11:42] LABS: GLUCOSE,POINT OF CARE 126 MG/DL (70-110)
[2017-11-21] MEDS: LABETALOL HCL 200 MG TABLET PO SCH (12:14)
[2017-11-21] MEDS: PANTOPRAZOLE SODIUM 40 MG DR TABLET PO SCH (12:14)
[2017-11-21] MEDS: ASPIRIN 81 MG CHEWABLE TABLET PO SCH (12:15)
[2017-11-21] MEDS: VITAMIN B COMP/VIT C/FOLIC ACID CAPSULE PO SCH (12:15)
[2017-11-21] MEDS: DOCUSATE SODIUM 100 MG CAPSULE PO SCH (12:15)
[2017-11-21] MEDS ORDERED: MAGNESIUM OXIDE 400 MG TABLET PO ONE ×2 (13:00→21:00)
[2017-11-21 13:58] VITALS: BP 156/76
[2017-11-21] MEDS ORDERED: LIDOCAINE HCL/PF 1% 2 ML VIAL ID ONE (15:29)
[2017-11-21 17:27] LABS: GLUCOSE,POINT OF CARE 137 MG/DL (70-110)
== END 2017-11-21 15:30 | disposition home or self-care (01) | DRG 469 ==
LOC: EMS 12:25 → 6N 15:56 → 5N 11-16 20:35
PROVIDERS: ADMIT Internal Medicine; ATTEND Internal Medicine
PROC: 30233N1 Transfusion of Nonautologous Red Blood Cells into Peripheral Vein, Percutaneous Approach (ICD-10-PCS; principal; 2017-11-15)
PROC: 5A1D70Z Performance of Urinary Filtration, Intermittent, Less than 6 Hours Per Day (ICD-10-PCS; 2017-11-16)
PROC: 5A1D70Z Performance of Urinary Filtration, Intermittent, Less than 6 Hours Per Day (ICD-10-PCS; 2017-11-17)
PROC: 5A1D70Z Performance of Urinary Filtration, Intermittent, Less than 6 Hours Per Day (ICD-10-PCS; 2017-11-19)
PROC: 5A1D70Z Performance of Urinary Filtration, Intermittent, Less than 6 Hours Per Day (ICD-10-PCS; 2017-11-21)
DX: N17.9 Acute kidney failure, unspecified (principal); E11.21 Type 2 diabetes mellitus with diabetic nephropathy; I12.0 Hypertensive chronic kidney disease with stage 5 chronic kidney disease or end stage renal disease; K31.84 Gastroparesis; E11.43 Type 2 diabetes mellitus with diabetic autonomic (poly)neuropathy; E87.1 Hypo-osmolality and hyponatremia; E11.65 Type 2 diabetes mellitus with hyperglycemia; D63.1 Anemia in chronic kidney disease; N18.6 End stage renal disease; E11.22 Type 2 diabetes mellitus with diabetic chronic kidney disease; E78.00 Pure hypercholesterolemia, unspecified; E83.39 Other disorders of phosphorus metabolism; G89.29 Other chronic pain; R04.0 Epistaxis; Z79.4 Long term (current) use of insulin; Z83.3 Family history of diabetes mellitus; Z87.442 Personal history of urinary calculi; Z79.899 Other long term (current) drug therapy; Z79.82 Long term (current) use of aspirin; Z82.49 Family history of ischemic heart disease and other diseases of the circulatory system; Z90.49 Acquired absence of other specified parts of digestive tract; Z99.2 Dependence on renal dialysis
CPT/HCPCS: 82271; 82306; 82962; 83735; 83970; 84100; 86850; 86900; 86901; 86920; 87081; 87340; 90935; 93005; 99285; J0360; J0885; J1940; J2270; J2405; J3490; J7030; J7040; P9016

== ENCOUNTER 2017-11-30 12:41 | Emergency (ER) | payer MEDICAID ==
[~2017-11-30] VITALS: Ht 152.4 cm; Wt 75.0 kg
[~2017-11-30 12:41] MED LIST changes: -DOCU250C90 PO; +ESOM20CA31 PO; -GABA-529 PO; +INSLAN SQ; +INSU100V SQ; -INSU100V12 SQ; +LABE200T PO; +METO-296 PO; +PANT40TA25 PO; -PROM25 PO; +VITA1CAP PO
[2017-11-30 12:58] LABS: GLUCOSE,POINT OF CARE 166 MG/DL (70-110)
[2017-11-30 13:22] LABS: BASOPHILS % (AUTO) 0.9 % (0.0-2.0); EOSINOPHILS % (AUTO) 5.2 % (1.0-6.0); HEMATOCRIT 28.7 % (36-46); HEMOGLOBIN 9.7 g/dL (12.0-16.0); LYMPHOCYTES # (AUTO) 1.3 K/uL (1.0-4.8); LYMPHOCYTES % (AUTO) 17.6 % (22.0-44.0); MEAN CORPUSCULAR HEMOGLOBIN 29.9 pg (26.0-34.0); MEAN CORPUSCULAR VOLUME 88 fL (80-100); MONOCYTES # (AUTO) 0.4 K/uL (0.1-1.0); MONOCYTES % (AUTO) 5.6 % (2.0-9.0); NEUTROPHILS # (AUTO) 5.2 K/uL (1.8-7.7); NEUTROPHILS % (AUTO) 70.7 % (40.0-70.0); PLATELET COUNT (AUTO) 423 K/uL (150-450); RED BLOOD CELL COUNT(AUTO) 3.26 MIL/uL (4.00-5.20); RED CELL DISTRIBUTION WIDTH 15.3 % (11.5-14.5)
[2017-11-30 13:42] LABS: CALCIUM, TOTAL 9.3 mg/dL (8.8-10.5); CREATININE 4.14 mg/dL (0.60-1.30); POTASSIUM 4.8 mmol/L (3.5-5.1)
[2017-11-30 13:43] LABS: ALBUMIN 3.2 g/dL (3.4-5.0); BILIRUBIN,TOTAL 0.5 mg/dL (0.1-1.0); TOTAL PROTEIN, SERUM 8.5 g/dL (6.4-8.2)
[2017-11-30 13:44] VITALS: BP 102/48
== END 2017-11-30 15:43 | disposition home or self-care (01) ==
LOC: EMS 12:43
DX: I12.0 Hypertensive chronic kidney disease with stage 5 chronic kidney disease or end stage renal disease (principal); E11.22 Type 2 diabetes mellitus with diabetic chronic kidney disease; N18.6 End stage renal disease; M25.561 Pain in right knee; M25.562 Pain in left knee; M85.862 Other specified disorders of bone density and structure, left lower leg; Z99.2 Dependence on renal dialysis
CPT/HCPCS: 82962; 93005; 99285

== ENCOUNTER 2020-07-14 20:24 | Emergency (ER) | payer MEDICAID ==
[~2020-07-14] VITALS: Ht 152.4 cm; Wt 76.0 kg
[~2020-07-14 20:24] MED LIST changes: -ASPI-556 PO; -LABE200T PO; +LABE200T6 PO; +NIFE-39 PO; -NIFE60TA71 PO; +ONDA-104 PO; +ONDA24TA2 PO; -ONDA4 PO; +PANT-31 PO; -PANT40TA25 PO
[2020-07-14 21:54] LABS: BASOPHILS % (AUTO) 1.2 % (0.0-2.0); EOSINOPHILS % (AUTO) 4.6 % (1.0-6.0); HEMATOCRIT 39.7 % (36-46); HEMOGLOBIN 12.6 g/dL (12.0-16.0); LYMPHOCYTES # (AUTO) 2.2 K/uL (1.0-4.8); LYMPHOCYTES % (AUTO) 24.2 % (22.0-44.0); MEAN CORPUSCULAR HEMOGLOBIN 30.6 pg (26.0-34.0); MEAN CORPUSCULAR HGB CONC 31.8 G/dL (31.0-37.0); MEAN CORPUSCULAR VOLUME 96 fL (80-100); MONOCYTES # (AUTO) 0.6 K/uL (0.1-1.0); MONOCYTES % (AUTO) 6.7 % (2.0-9.0); NEUTROPHILS # (AUTO) 5.6 K/uL (1.8-7.7); NEUTROPHILS % (AUTO) 63.3 % (40.0-70.0); PLATELET COUNT (AUTO) 272 K/uL (150-450); RED BLOOD CELL COUNT(AUTO) 4.13 MIL/uL (4.00-5.20); RED CELL DISTRIBUTION WIDTH 16.9 % (11.5-14.5)
[2020-07-14 22:13] LABS: CALCIUM, TOTAL 9.1 mg/dL (8.8-10.5); CREATININE 6.46 mg/dL (0.60-1.30); POTASSIUM 3.6 mmol/L (3.5-5.1)
[2020-07-14] MEDS ORDERED: LIDOCAINE 5% TRANSDERMAL PATCH TD ONE (22:15)
[2020-07-14] MEDS ORDERED: ACETAMINOPHEN 325 MG TABLET PO ONE (22:15)
[2020-07-14 22:19] LABS: ALBUMIN 3.3 g/dL (3.4-5.0); BILIRUBIN,TOTAL 0.6 mg/dL (0.1-1.0)
[2020-07-14 22:31] LABS: INR 0.9 (0.9-1.1)
[2020-07-14 23:49] VITALS: BP 138/84
== END 2020-07-14 23:59 | disposition home or self-care (01) ==
LOC: EMS 20:24
DX: S20.212A Contusion of left front wall of thorax, initial encounter (principal); E78.00 Pure hypercholesterolemia, unspecified; I12.0 Hypertensive chronic kidney disease with stage 5 chronic kidney disease or end stage renal disease; E11.22 Type 2 diabetes mellitus with diabetic chronic kidney disease; N18.6 End stage renal disease; Z99.2 Dependence on renal dialysis; Z79.899 Other long term (current) drug therapy; Z79.4 Long term (current) use of insulin; W19.XXXA Unspecified fall, initial encounter; Y93.89 Activity, other specified; Y92.89 Other specified places as the place of occurrence of the external cause; Y99.8 Other external cause status
CPT/HCPCS: 71101; 93005

== ENCOUNTER 2020-09-08 16:38 | Emergency (ER) | payer MEDICAID ==
[~2020-09-08] VITALS: Ht 157.5 cm; Wt 86.4 kg
[2020-09-08 18:05] VITALS: BP 119/66
[2020-09-08 20:15] LABS: GLUCOSE,POINT OF CARE 140 MG/DL (70-110)
== END 2020-09-08 18:25 | disposition home or self-care (01) ==
LOC: EMS 16:38
DX: E11.649 Type 2 diabetes mellitus with hypoglycemia without coma (principal); E78.00 Pure hypercholesterolemia, unspecified; I12.0 Hypertensive chronic kidney disease with stage 5 chronic kidney disease or end stage renal disease; E11.22 Type 2 diabetes mellitus with diabetic chronic kidney disease; N18.6 End stage renal disease; Z99.2 Dependence on renal dialysis; Z79.899 Other long term (current) drug therapy; Z79.4 Long term (current) use of insulin
CPT/HCPCS: 82948

== ENCOUNTER 2022-09-09 23:24 | Inpatient (IN) | payer MEDICAID, OTHER ==
[~2022-09-09] VITALS: Ht 167.6 cm; Wt 88.7 kg
[~2022-09-09 23:24] MED LIST changes: +LABE200T56 PO; -LABE200T6 PO; -LISI-662 PO; +LISI-894 PO; +NIFE-129 PO; -NIFE-39 PO
[2022-09-10] VITALS (14 sets, daily range): BP systolic 97–208; BP diastolic 56–110
[2022-09-10] MEDS ORDERED: VECURONIUM BROMIDE 10 MG/VIAL IVP ONE
[2022-09-10 00:06] LABS: ABG BASE EXCESS -14.5 mmol/L (-2.0-3.0); ABG CARBOXYHEMOGLOBIN 0.3 % (0.0-1.5); ABG HCO3 13.5 mmol/L (22.0-26.0); ABG METHEMOGLOBIN 0.4 % (0.0-1.5); ABG OXYGEN CONTENT 15.1 mL/dL (15.0-23.0); ABG OXYGEN SATURATION 99.2 % (95.0-98.0); ABG OXYHEMOGLOBIN 98.5 % (94.0-100.0); ABG PCO2 50 mmHg (35-45); PO2, ARTERIAL BG 434.7 mmHg (84.0-92.0); SITE, BLOOD GAS RT RADIAL; SOURCE, BLOOD GAS ARTERIAL; TEMPERATURE, FAHRENHEIT, BG 98.6 FAHREN (96.0-98.6)
[2022-09-10 00:07] LABS: O2 DEVICE,BLOOD GAS VENTILATOR (ROOM AIR); PEEP,BG 5 cm H2O; VT, ABG 500 ml
[2022-09-10 00:11] LABS: BASOPHILS % (AUTO) 0.7 % (0.0-2.0); EOSINOPHILS % (AUTO) 0.9 % (1.0-6.0); HEMATOCRIT 32.5 % (36-46); HEMOGLOBIN 9.5 g/dL (12.0-16.0); LYMPHOCYTES % (AUTO) 20.2 % (22.0-44.0); MEAN CORPUSCULAR HEMOGLOBIN 31.8 pg (26.0-34.0); MEAN CORPUSCULAR HGB CONC 29.2 G/dL (31.0-37.0); MEAN CORPUSCULAR VOLUME 109 fL (80-100); MONOCYTES # (AUTO) 0.9 K/uL (0.1-1.0); MONOCYTES % (AUTO) 3.4 % (2.0-9.0); NEUTROPHILS # (AUTO) 18.5 K/uL (1.8-7.7); NEUTROPHILS % (AUTO) 74.8 % (40.0-70.0); PLATELET COUNT (AUTO) 242 K/uL (150-450); RED BLOOD CELL COUNT(AUTO) 2.98 MIL/uL (4.00-5.20); RED CELL DISTRIBUTION WIDTH 17.4 % (11.5-14.5)
[2022-09-10] MEDS ORDERED: SODIUM BICARBONATE [ADULT] 8.4% 50 MEQ/50 ML SYRINGE IVP ONE (00:15)
[2022-09-10 00:27] LABS: LACTIC ACID 11.9 mmol/L (0.4-2.0)
[2022-09-10 00:30] LABS: INR 1.1 (0.9-1.1); PROTHROMBIN TIME 11.2 SEC (9.4-11.6)
[2022-09-10 00:32] LABS: B-TYPE NATRIURETIC PEPTIDE 1790 pg/mL (0-100)
[2022-09-10 00:34] LABS: ALANINE AMINOTRANSFERASE 162 U/L (12-78); ALBUMIN 2.8 g/dL (3.4-5.0); ALKALINE PHOSPHATASE 120 U/L (46-116); ANION GAP 21 mmol/L (8-16); ASPARTATE AMINOTRANSFERASE 224 U/L (15-37); BILIRUBIN,TOTAL 0.4 mg/dL (0.1-1.0); CALCIUM, TOTAL 10.3 mg/dL (8.8-10.5); CARBON DIOXIDE 24 mmol/L (22-29); CHLORIDE 88 mmol/L (98-107); CREATINE KINASE, TOTAL ONLY 251 U/L (26-192); CREATININE 11.38 mg/dL (0.60-1.30); GLOMERULAR FILTR. RATE CALC 3 mL/min (>60); LIPASE 181 U/L (73-393); POTASSIUM 5.1 mmol/L (3.5-5.1); SODIUM SERUM 133 mmol/L (136-145); TOTAL PROTEIN, SERUM 6.4 g/dL (6.4-8.2); UREA NITROGEN, BLOOD 79 mg/dL (7-18)
[2022-09-10 00:35] LABS: GLUCOSE,RANDOM 598 mg/dL (70-110)
[2022-09-10] MEDS: PROPOFOL 1000 MG/ISO-OSM 100 ML IV PRN ×2 (01:08→04:37)
[2022-09-10 01:10] LABS: COVID AG,FIA SOURCE NASAL SWAB
[2022-09-10] MEDS ORDERED: ONDANSETRON HCL 4 MG/2 ML VIAL IVP PRN (01:30)
[2022-09-10] MEDS ORDERED: 0.9% SODIUM CHLORIDE 10 ML SYRINGE IVP PRN (01:30)
[2022-09-10] MEDS ORDERED: VANCOMYCIN 1GM/WATER(PEG/NADA) 200 ML IV ONE (01:30)
[2022-09-10] MEDS ORDERED: PIPERACILLIN/TAZO 3.375 GM/D5W 50 ML IV ONE (01:30)
[2022-09-10] MEDS ORDERED: ATROPINE SULFATE 0.1 MG/ML 10 ML SYRINGE IVP ONE (03:30)
[2022-09-10] MEDS ORDERED: LORazepam 2 MG/ML VIAL IVP PRN (04:15)
[2022-09-10] MEDS ORDERED: SODIUM CHLORIDE 0.45% 1,000 ML IV PRN ×2 (04:15→05:45)
[2022-09-10] MEDS ORDERED: INSULIN REGULAR, HUMAN 100 UNITS/ML IVP PRN ×3 (04:15→05:45)
[2022-09-10] MEDS ORDERED: POTASSIUM PHOS,M-BASIC-D-BASIC 20 MMOL in SODIUM CHLORIDE 0.45% 500 ML IV PRN (04:15)
[2022-09-10] MEDS ORDERED: DEXTROSE 5%-0.45% SODIUM CHL 1,000 ML IV PRN ×2 (04:15→05:45)
[2022-09-10] MEDS ORDERED: POTASSIUM CHLORIDE 40 MEQ in SODIUM CHLORIDE 0.45% 1,000 ML IV PRN ×2 (04:15→05:45)
[2022-09-10] MEDS ORDERED: POTASSIUM CHL 20 MEQ/0.45% NS 1,000 ML IV PRN ×2 (04:15→05:45)
[2022-09-10] MEDS ORDERED: DEXTROSE 50%-WATER 25 GM/50 ML SYRINGE IVP PRN ×2 (04:15→05:45)
[2022-09-10] MEDS ORDERED: SODIUM CHLORIDE 0.9% 1,000 ML IV SCH ×3 (04:15→05:45)
[2022-09-10 05:13] LABS: ABG BASE EXCESS -7.2 mmol/L (-2.0-3.0); ABG CARBOXYHEMOGLOBIN 0.7 % (0.0-1.5); ABG HCO3 18.9 mmol/L (22.0-26.0); ABG METHEMOGLOBIN 0.3 % (0.0-1.5); ABG OXYGEN CONTENT 12.2 mL/dL (15.0-23.0); ABG OXYGEN SATURATION 95.5 % (95.0-98.0); ABG OXYHEMOGLOBIN 94.5 % (94.0-100.0); ABG PCO2 40 mmHg (35-45); ABG TOTAL HEMOGLOBIN 9.1 G/dL (12.0-18.0); PO2, ARTERIAL BG 91.5 mmHg (84.0-92.0); SOURCE, BLOOD GAS ARTERIAL; TEMPERATURE, FAHRENHEIT, BG 98.3 FAHREN (96.0-98.6)
[2022-09-10 05:14] LABS: O2 DEVICE,BLOOD GAS VENTILATOR (ROOM AIR); PEEP,BG 5 cm H2O; SITE, BLOOD GAS RT RADIAL; VT, ABG 450 ml
[2022-09-10] MEDS ORDERED: NOREPINEPHRINE 8 MG/D5%-WATER 250 ML IV PRN (05:30)
[2022-09-10] MEDS ORDERED: VASOPRESSIN 40 UNITS in DEXTROSE 5%-WATER 98 ML IV PRN (05:30)
[2022-09-10] MEDS ORDERED: PHENYLEPHRINE 200 MG/D5%-WATER 250 ML IV PRN (05:30)
[2022-09-10 05:39] LABS: ALBUMIN 2.7 g/dL (3.4-5.0); BILIRUBIN,TOTAL 0.7 mg/dL (0.1-1.0); CALCIUM, TOTAL 8.7 mg/dL (8.8-10.5); CREATININE 11.67 mg/dL (0.60-1.30); MAGNESIUM 2.9 mg/dL (1.80-2.40)
[2022-09-10 05:40] LABS: PHOSPHORUS 9.8 mg/dL (2.5-4.9)
[2022-09-10 05:41] LABS: POTASSIUM 8.8 mmol/L (3.5-5.1)
[2022-09-10] MEDS: INSULIN REGULAR, HUMAN 100 UNITS in SODIUM CHLORIDE 0.9% 99 ML IV PRN ×4 (06:00→11:04)
[2022-09-10] MEDS ORDERED: CALCIUM GLUCONATE 100 MG/ML 10 ML IVP ONE (06:44)
[2022-09-10] MEDS ORDERED: INSULIN REGULAR, HUMAN 100 UNITS/ML IVP ONE (06:45)
[2022-09-10] MEDS ORDERED: CALCIUM GLUCONATE 0.465 MEQ/ML 10 ML VIAL IVP ONE (06:45)
[2022-09-10] MEDS ORDERED: SODIUM ZIRCONIUM CYCLOSILICATE 5 GM POWDER PACKET PO ONE (06:45)
[2022-09-10 07:16] LABS: BASOPHILS % (AUTO) 0.2 % (0.0-2.0); EOSINOPHILS % (AUTO) 0 % (1.0-6.0); HEMATOCRIT 27.3 % (36-46); HEMOGLOBIN 8.5 g/dL (12.0-16.0); LYMPHOCYTES # (AUTO) 0.5 K/uL (1.0-4.8); LYMPHOCYTES % (AUTO) 1.7 % (22.0-44.0); MEAN CORPUSCULAR HEMOGLOBIN 31.9 pg (26.0-34.0); MEAN CORPUSCULAR HGB CONC 31.3 G/dL (31.0-37.0); MEAN CORPUSCULAR VOLUME 102 fL (80-100); MONOCYTES # (AUTO) 1.4 K/uL (0.1-1.0); MONOCYTES % (AUTO) 4.8 % (2.0-9.0); NEUTROPHILS # (AUTO) 27.5 K/uL (1.8-7.7); PLATELET COUNT (AUTO) 225 K/uL (150-450); RED BLOOD CELL COUNT(AUTO) 2.68 MIL/uL (4.00-5.20); RED CELL DISTRIBUTION WIDTH 16.6 % (11.5-14.5)
[2022-09-10 07:27] LABS: NEUTROPHILS % (AUTO) 93.3 % (40.0-70.0)
[2022-09-10 08:01] LABS: GLUCOSE,POINT OF CARE 462 MG/DL (70-110)
[2022-09-10 08:01] LABS: GLUCOSE,POINT OF CARE 477 MG/DL (70-110)
[2022-09-10 08:36] LABS: GLUCOSE,POINT OF CARE 429 MG/DL (70-110)
[2022-09-10 09:02] LABS: CREATININE 11.27 mg/dL (0.60-1.30)
[2022-09-10 09:06] LABS: POTASSIUM 6.4 mmol/L (3.5-5.1)
[2022-09-10] MEDS: ETHYL ALCOHOL 62% ANTISEPTIC NASAL SANITIZER 0.6 ML AMPUL NASAL SCH ×2 (09:07→21:36)
[2022-09-10 11:01] LABS: GLUCOSE,POINT OF CARE 457 MG/DL (70-110)
[2022-09-10] MEDS: LevETIRAcetam 500 MG in DEXTROSE 5%-WATER 100 ML IV SCH (11:06)
[2022-09-10] MEDS ORDERED: VANCOMYCIN HCL 1 GM in DEXTROSE 5%-WATER 250 ML IV PRN (11:45)
[2022-09-10 12:11] LABS: ALBUMIN 3.2 g/dL (3.4-5.0); BILIRUBIN,TOTAL 0.5 mg/dL (0.1-1.0); CALCIUM, TOTAL 9.4 mg/dL (8.8-10.5); CREATININE 6.02 mg/dL (0.60-1.30); MAGNESIUM 2.4 mg/dL (1.80-2.40); PHOSPHORUS 4.1 mg/dL (2.5-4.9); POTASSIUM 3.4 mmol/L (3.5-5.1); TOTAL PROTEIN, SERUM 7.1 g/dL (6.4-8.2)
[2022-09-10 12:28] LABS: ABG A-A DIFF O2 242.5 mmHg (10-20.0); ABG BASE EXCESS 2.7 mmol/L (-2.0-3.0); ABG HCO3 26.7 mmol/L (22.0-26.0); ABG METHEMOGLOBIN 0.3 % (0.0-1.5); ABG OXYGEN SATURATION 95.9 % (95.0-98.0); ABG OXYHEMOGLOBIN 94.7 % (94.0-100.0); ABG PCO2 37 mmHg (35-45); ABG PH 7.473 (7.35-7.450); ABG TOTAL HEMOGLOBIN 11.2 G/dL (12.0-18.0); O2 DEVICE,BLOOD GAS VENTILATOR (ROOM AIR); PEEP,BG 5 cm H2O; PO2, ARTERIAL BG 75.8 mmHg (84.0-92.0); SITE, BLOOD GAS RT RADIAL; SOURCE, BLOOD GAS ARTERIAL; TEMPERATURE, FAHRENHEIT, BG 94.1 FAHREN (96.0-98.6); VT, ABG 450 ml
[2022-09-10 12:29] LABS: SPONTANEOUS VT, BG 500 ml
[2022-09-10] MEDS ORDERED: VANCOMYCIN HCL 1.25 GM in DEXTROSE 5%-WATER 250 ML IV ONE (13:00)
[2022-09-10] MEDS: PIPERACILLIN SODIUM/TAZOBACTAM 2.25 GM in DEXTROSE 5%-WATER 50 ML IV SCH ×2 (13:16→20:18)
[2022-09-10 14:18] LABS: CREATININE 3.87 mg/dL (0.60-1.30); POTASSIUM 3.4 mmol/L (3.5-5.1)
[2022-09-10] MEDS ORDERED: HydrALAZINE HCL 20 MG/ML VIAL IVP PRN (14:45)
[2022-09-10] MEDS: AmLODIPine BESYLATE 5 MG TABLET NG SCH ×2 (15:40→21:36)
[2022-09-10] MEDS ORDERED: PROPOFOL 1000 MG/ISO-OSM 100 ML IV PRN (15:45)
[2022-09-10] MEDS ORDERED: LABETALOL HCL 5 MG/ML 20 ML VIAL IVP PRN (16:30)
[2022-09-10 17:10] LABS: BILIRUBIN,TOTAL 0.7 mg/dL (0.1-1.0); CALCIUM, TOTAL 9.2 mg/dL (8.8-10.5); CREATININE 5.42 mg/dL (0.60-1.30); MAGNESIUM 2.1 mg/dL (1.80-2.40); PHOSPHORUS 4.2 mg/dL (2.5-4.9); POTASSIUM 4.1 mmol/L (3.5-5.1)
[2022-09-10 17:22] LABS: ABG BASE EXCESS 2.7 mmol/L (-2.0-3.0); ABG CARBOXYHEMOGLOBIN 0.5 % (0.0-1.5); ABG HCO3 27.1 mmol/L (22.0-26.0); ABG METHEMOGLOBIN 0.3 % (0.0-1.5); ABG OXYHEMOGLOBIN 97.2 % (94.0-100.0); ABG PCO2 26 mmHg (35-45); ABG PH 7.597 (7.35-7.450); ABG TOTAL HEMOGLOBIN 10.1 G/dL (12.0-18.0); O2 DEVICE,BLOOD GAS VENTILATOR (ROOM AIR); PEEP,BG 5 cm H2O; PO2, ARTERIAL BG 82.5 mmHg (84.0-92.0); SITE, BLOOD GAS RT RADIAL; SOURCE, BLOOD GAS ARTERIAL; TEMPERATURE, FAHRENHEIT, BG 88.9 FAHREN (96.0-98.6); VT, ABG 450 ml
[2022-09-10] MEDS ORDERED: NiCARDipine HCL 25 MG in SODIUM CHLORIDE 0.9% 240 ML IV PRN (18:00)
[2022-09-10 20:10] LABS: CALCIUM, TOTAL 9.1 mg/dL (8.8-10.5); CREATININE 6.01 mg/dL (0.60-1.30); POTASSIUM 4.4 mmol/L (3.5-5.1)
[2022-09-10 20:11] LABS: GLUCOSE,POINT OF CARE 166 MG/DL (70-110)
[2022-09-10 20:11] LABS: GLUCOSE,POINT OF CARE 308 MG/DL (70-110)
[2022-09-10 20:11] LABS: GLUCOSE,POINT OF CARE 416 MG/DL (70-110)
[2022-09-10 20:11] LABS: GLUCOSE,POINT OF CARE 374 MG/DL (70-110)
[2022-09-10 20:11] LABS: GLUCOSE,POINT OF CARE 130 MG/DL (70-110)
[2022-09-10 20:12] LABS: GLUCOSE,POINT OF CARE 146 MG/DL (70-110)
[2022-09-10 20:12] LABS: GLUCOSE,POINT OF CARE 204 MG/DL (70-110)
[2022-09-10 20:12] LABS: GLUCOSE,POINT OF CARE 200 MG/DL (70-110)
[2022-09-10 20:12] LABS: GLUCOSE,POINT OF CARE 208 MG/DL (70-110)
[2022-09-10 20:12] LABS: GLUCOSE,POINT OF CARE 198 MG/DL (70-110)
[2022-09-10 20:12] LABS: GLUCOSE,POINT OF CARE 180 MG/DL (70-110)
[2022-09-10 20:12] LABS: GLUCOSE,POINT OF CARE 201 MG/DL (70-110)
[2022-09-10 23:35] LABS: ABG BASE EXCESS 0.4 mmol/L (-2.0-3.0); ABG CARBOXYHEMOGLOBIN 0.4 % (0.0-1.5); ABG HCO3 24.9 mmol/L (22.0-26.0); ABG METHEMOGLOBIN 0.3 % (0.0-1.5); ABG OXYHEMOGLOBIN 97.3 % (94.0-100.0); ABG PCO2 32 mmHg (35-45); ABG PH 7.488 (7.35-7.450); ABG TOTAL HEMOGLOBIN 11.5 G/dL (12.0-18.0); PO2, ARTERIAL BG 104.4 mmHg (84.0-92.0); SOURCE, BLOOD GAS ARTERIAL; TEMPERATURE, FAHRENHEIT, BG 90.4 FAHREN (96.0-98.6)
[2022-09-10 23:42] LABS: ALBUMIN 2.4 g/dL (3.4-5.0); BILIRUBIN,TOTAL 0.6 mg/dL (0.1-1.0); CALCIUM, TOTAL 8.5 mg/dL (8.8-10.5); CREATININE 6.18 mg/dL (0.60-1.30); MAGNESIUM 2.2 mg/dL (1.80-2.40); PHOSPHORUS 5.1 mg/dL (2.5-4.9); POTASSIUM 4.1 mmol/L (3.5-5.1); TOTAL PROTEIN, SERUM 5.8 g/dL (6.4-8.2)
[2022-09-11] VITALS (14 sets, daily range): BP systolic 90–163; BP diastolic 51–77
[2022-09-11 00:04] LABS: SITE, BLOOD GAS RT RADIAL
[2022-09-11 00:05] LABS: SOURCE, BLOOD GAS ARTERY; TEMPERATURE, FAHRENHEIT, BG 90.4 FAHREN (96.0-98.6)
[2022-09-11 00:07] LABS: ABG PCO2 32 mmHg (35-45); ABG PH 7.488 (7.35-7.450); PO2, ARTERIAL BG 104.4 mmHg (84.0-92.0)
[2022-09-11 00:08] LABS: ABG BASE EXCESS 0.4 mmol/L (-2.0-3.0); ABG HCO3 24.9 mmol/L (22.0-26.0); ABG TOTAL HEMOGLOBIN 11.5 G/dL (12.0-18.0)
[2022-09-11 00:10] LABS: ABG CARBOXYHEMOGLOBIN 0.4 % (0.0-1.5); ABG METHEMOGLOBIN 0.3 % (0.0-1.5)
[2022-09-11 00:18] LABS: PEEP,BG 5 cm H2O; VT, ABG 450 ml
[2022-09-11] MEDS: LevETIRAcetam 500 MG in DEXTROSE 5%-WATER 100 ML IV SCH ×2 (00:36→10:16)
[2022-09-11 00:41] LABS: GLUCOSE,POINT OF CARE 159 MG/DL (70-110)
[2022-09-11 00:41] LABS: GLUCOSE,POINT OF CARE 130 MG/DL (70-110)
[2022-09-11 00:41] LABS: GLUCOSE,POINT OF CARE 182 MG/DL (70-110)
[2022-09-11 00:41] LABS: GLUCOSE,POINT OF CARE 153 MG/DL (70-110)
[2022-09-11] MEDS: INSULIN REGULAR, HUMAN 100 UNITS in SODIUM CHLORIDE 0.9% 99 ML IV PRN ×2 (01:57)
[2022-09-11 03:11] LABS: GLUCOSE,POINT OF CARE 148 MG/DL (70-110)
[2022-09-11 03:11] LABS: GLUCOSE,POINT OF CARE 122 MG/DL (70-110)
[2022-09-11 03:49] LABS: SITE, BLOOD GAS RT RADIAL
[2022-09-11 03:50] LABS: PEEP,BG 5 cm H2O; VT, ABG 450 ml
[2022-09-11] MEDS: PIPERACILLIN SODIUM/TAZOBACTAM 2.25 GM in DEXTROSE 5%-WATER 50 ML IV SCH ×3 (04:39→20:00)
[2022-09-11] MEDS ORDERED: SODIUM CHLORIDE 0.9% 250 ML IV ONE (04:57)
[2022-09-11 06:09] LABS: ALBUMIN 2.3 g/dL (3.4-5.0); BILIRUBIN,TOTAL 0.6 mg/dL (0.1-1.0); CALCIUM, TOTAL 8.2 mg/dL (8.8-10.5); CREATININE 6.4 mg/dL (0.60-1.30); MAGNESIUM 2.1 mg/dL (1.80-2.40); PHOSPHORUS 5.4 mg/dL (2.5-4.9); POTASSIUM 4.9 mmol/L (3.5-5.1); TOTAL PROTEIN, SERUM 5.6 g/dL (6.4-8.2)
[2022-09-11 07:01] LABS: GLUCOSE,POINT OF CARE 156 MG/DL (70-110)
[2022-09-11] MEDS ORDERED: INSULIN LISPRO 100 UNITS/ML SQ PRN (07:45)
[2022-09-11] MEDS ORDERED: DEXTROSE 50%-WATER 25 GM/50 ML SYRINGE IVP PRN (07:45)
[2022-09-11] MEDS: ETHYL ALCOHOL 62% ANTISEPTIC NASAL SANITIZER 0.6 ML AMPUL NASAL SCH (08:10)
[2022-09-11] MEDS: AmLODIPine BESYLATE 5 MG TABLET NG SCH (08:11)
[2022-09-11 08:33] LABS: BASOPHILS % (AUTO) 0.1 % (0.0-2.0); EOSINOPHILS % (AUTO) 0 % (1.0-6.0); HEMATOCRIT 28.4 % (36-46); HEMOGLOBIN 9.2 g/dL (12.0-16.0); LYMPHOCYTES # (AUTO) 0.4 K/uL (1.0-4.8); LYMPHOCYTES % (AUTO) 2.5 % (22.0-44.0); MEAN CORPUSCULAR HEMOGLOBIN 31.7 pg (26.0-34.0); MEAN CORPUSCULAR HGB CONC 32.5 G/dL (31.0-37.0); MEAN CORPUSCULAR VOLUME 98 fL (80-100); MONOCYTES # (AUTO) 0.3 K/uL (0.1-1.0); MONOCYTES % (AUTO) 2.1 % (2.0-9.0); NEUTROPHILS # (AUTO) 14.9 K/uL (1.8-7.7); PLATELET COUNT (AUTO) 184 K/uL (150-450); RED BLOOD CELL COUNT(AUTO) 2.91 MIL/uL (4.00-5.20); RED CELL DISTRIBUTION WIDTH 16.3 % (11.5-14.5)
[2022-09-11 08:38] LABS: NEUTROPHILS % (AUTO) 95.3 % (40.0-70.0)
[2022-09-11] MEDS ORDERED: INSULIN GLARGINE,HUM.REC.ANLOG 100 UNITS/ML SQ SCH (09:00)
[2022-09-11 09:32] LABS: CALCIUM, TOTAL 8.7 mg/dL (8.8-10.5); CREATININE 2.61 mg/dL (0.60-1.30); POTASSIUM 3.7 mmol/L (3.5-5.1)
[2022-09-11] MEDS ORDERED: MAGNESIUM HYDROXIDE SUSPENSION 30 ML UDCUP PO PRN (10:00)
[2022-09-11] MEDS ORDERED: ONDANSETRON HCL 4 MG/2 ML VIAL IVP PRN (10:00)
[2022-09-11] MEDS ORDERED: BISACODYL 10 MG RECTAL RECTAL SUPPOSITORY PR PRN (10:00)
[2022-09-11] MEDS ORDERED: ZOLPIDEM TARTRATE 5 MG TABLET PO PRN (10:00)
[2022-09-11] MEDS ORDERED: IPRATROPIUM BROMIDE 0.5 MG/2.5 ML NEB SOLUTION NEB PRN (10:00)
[2022-09-11] MEDS ORDERED: ALBUTEROL SULFATE 2.5 MG/0.5 ML NEB SOLUTION NEB PRN (10:00)
[2022-09-11] MEDS ORDERED: ACETAMINOPHEN 325 MG TABLET PO PRN (10:00)
[2022-09-11] MEDS ORDERED: HEPARIN SODIUM,PORCINE 5,000 UNITS/ML VIAL SQ SCH (16:00)
[2022-09-11 20:36] LABS: GLUCOSE,POINT OF CARE 210 MG/DL (70-110)
[2022-09-11] MEDS ORDERED: DOCUSATE SODIUM 100 MG CAPSULE PO SCH (21:00)
[2022-09-11] MEDS ORDERED: METF-1211 PO (23:11)
[2022-09-11] MEDS ORDERED: AMLO10TA4 PO (23:11)
[2022-09-11] MEDS ORDERED: LOVA20TA73 PO (23:11)
[2022-09-11] MEDS ORDERED: LISI-663 PO (23:11)
[2022-09-11] MEDS ORDERED: HYDR25TA PO (23:11)
[2022-09-12] MEDS ORDERED: PANTOPRAZOLE SODIUM 40 MG/VIAL IVP SCH (09:00)
== END 2022-09-11 23:00 | DRG 720 ==
LOC: EMS 23:25 → ICU 09-10 03:07
PROVIDERS: ADMIT Hospitalist; ATTEND Hospitalist
PROC: 5A1945Z Respiratory Ventilation, 24-96 Consecutive Hours (ICD-10-PCS; principal; 2022-09-10)
PROC: 0BH17EZ Insertion of Endotracheal Airway into Trachea, Via Natural or Artificial Opening (ICD-10-PCS; 2022-09-10)
PROC: 5A1D70Z Performance of Urinary Filtration, Intermittent, Less than 6 Hours Per Day (ICD-10-PCS; 2022-09-11)
DX: A41.51 Sepsis due to Escherichia coli [E. coli] (principal); J96.01 Acute respiratory failure with hypoxia; I46.9 Cardiac arrest, cause unspecified; I13.2 Hypertensive heart and chronic kidney disease with heart failure and with stage 5 chronic kidney disease, or end stage renal disease; I47.20 Ventricular tachycardia, unspecified; N18.6 End stage renal disease; D63.1 Anemia in chronic kidney disease; E87.4 Mixed disorder of acid-base balance; G25.3 Myoclonus; Z99.2 Dependence on renal dialysis; E87.5 Hyperkalemia; E11.65 Type 2 diabetes mellitus with hyperglycemia; I50.9 Heart failure, unspecified; E66.01 Morbid (severe) obesity due to excess calories; E11.22 Type 2 diabetes mellitus with diabetic chronic kidney disease; G89.29 Other chronic pain; E55.9 Vitamin D deficiency, unspecified; K21.9 Gastro-esophageal reflux disease without esophagitis; E78.00 Pure hypercholesterolemia, unspecified; Z20.822 Contact with and (suspected) exposure to COVID-19; Z94.7 Corneal transplant status; Z87.442 Personal history of urinary calculi; Z83.3 Family history of diabetes mellitus; Z82.49 Family history of ischemic heart disease and other diseases of the circulatory system; Z99.11 Dependence on respirator [ventilator] status; Z68.31 Body mass index [BMI] 31.0-31.9, adult
CPT/HCPCS: 31500; 36556; 36600; 51702; 70450; 71045; 78606; 80048; 80053; 80202; 82550; 82805; 82962; 83605; 83690; 83735; 83880; 84100; 84484; 85025; 85610; 85730; 87040; 87070; 87081; 87340; 90935; 92950; 93005; 93306; 94002; 94003; 99291; 99292; A9521; G0378; J0360; J0461; J0610; J0712; J1644; J1815; J2060; J2543; J2704; J3370; J3480; J3490; J7030; J7050; J7060; Q9967; 36415-L1; 36415-TC